=== PATIENT | female | born 1965 | race Caucasian/White ===

== ENCOUNTER 2016-06-21 12:52 | Outpatient (CLI) ==
[2015-09-20 16:28] VITALS: BMI 40.0
--- NOTE | 2016-06-21 17:50 | MRI ---
EXAM: MRI cervical spine without IV contrast. DATE: 21 June 2016. HISTORY: Cervical radiculopathy. TECHNIQUE: Sagittal and axial T1W and T2W sequences of the cervical spine along with sagittal IR an d coronal T2W sequences were obtained using 1.2 Macy magnet. No IV contrast. COMPARISON: MRI C-spine 15 Sep 2014. FINDINGS: Mild rightward curvature the mid cervical spine is noted. A 1.1 mm anterior subluxation of C5 relative to C4 is observed. No other subluxation, acute fracture, osseous malignancy, or jump ed facet is apparent. Cervical vertebra are normal in height. Bone marrow signal is normal. Small anterior osteophytes and mild disc space narrowing are detected at C4-5. Cervical and upper thoraci c spinal cord reveals no syrinx, cord edema, myelomalacia, or neoplasm. Visible brainstem is unremarkable. Cerebellar tonsils extend near the inferior margin of the forame n magnum. There is no Chiari 1 malformation. No mastoid effusion or mastoiditis is demonstrated. Pituitary gland is somewhat small in size. No thyroid, submandibular, or parotid gland neoplasm is evident. Trachea, larynx, and epiglottis are normal. Small lymph nodes are seen in the anterior ce rvical chain bilaterally, but no definitive lymphadenopathy or mass. No apical lung mass, pneumonia , or pleural effusion is identified. Segmental analysis: C2-3: Normal. C3-4: Posterior midline broad disc protrusion (2 mm AP x 9.4 mm transverse) slightly flattens the c ord anteriorly. Canal is 7.5 mm AP. Minimal/mild bilateral foraminal stenoses are due to uncinate hypertrophy and mild facet arthropathy. C4-5: Minor anterior subluxation of C5 and broad posterior disc/osteophyte complex do not cause cor d compression; however, the cord is mildly flattened anteriorly. Canal is 9.8 mm AP. Marked right and mild/moderate left foraminal stenoses due to uncinate hypertrophy and mild facet disease. C5-6: Left paracentral disc/osteophyte complex (2.2 mm AP x 7 mm transverse) approaches the left an terolateral margin of the cord. There is mild ligamentum flavum hypertrophy. Canal is 8.2 mm AP. Mild left foraminal stenosis is due to uncinate hypertrophy and mild left facet arthropathy. C6-7: Broad posterior disc/osteophyte complex (2.6 mm AP) does not contact the cord. Canal is 7.8 mm AP. Minor left foraminal narrowing is due to uncinate hypertrophy. C7-T1: Minimal posterior disc bulge (1.4 mm AP) does not contact the cord. Canal is 10.3 mm AP. E ach foramen is patent. T1-2: Normal. IMPRESSIONS: 1. C-spine mild dextroscoliosis, minimal spondylosis, mild facet arthropathy, and multilevel DDD - - similar to August 2014. 2. Multilevel central canal stenosis (C3-4: Moderate. C4-5: Mild. C5-6: Mild. C6-7: Moderate). 3. Mild cord flattening at C3-4 and C4-5. No syrinx or myelomalacia. 4. Multilevel foraminal stenosis, especially right C4-5. 5. Small pituitary gland.
--- NOTE | 2016-06-21 18:04 | MRI ---
EXAM: MRI lumbar spine without IV contrast. DATE: 21 June 2016. HISTORY: Lumbar radiculopathy. Low back pain. TECHNIQUE: Sagittal and axial T1W and T2W sequences of the lumbar spine along with sagittal IR and coronal T2W sequences were obtained using 1.2 Macy magnet. No IV contrast. COMPARISON: LS spine series 29 September 2013. MRI L-spine April 2015. The abdomen/pelvis 15 Sep 2014 FINDINGS: There are five [id number]-[id number] lumbar vertebra. Minimal leftward curvature of the lumbar spine is observed. A 2.2 mm anterior subluxation of L5 relative to L4 and 2.2 mm anterolisthesis o f S1 relative to L5 are noted. No other subluxation, acute fracture, osseous malignancy, or pars in terarticularis defect is identified. Lumbar vertebra are normal in height. Bone marrow signal is n ormal. Large Schmorl's node at the L3 superior plate is chronic. Tiny anterior osteophytes and mil d disc space narrowing are present at L5-S1. No sacral fracture or stress reaction is apparent. SI joints are unremarkable. Conus medullaris terminates at T12-L1. Visible spinal cord is normal. No retroperitoneal lymphadenopathy, paraspinal mass, or aortic aneurysm is identified. Paraspinal m usculature is symmetric bilaterally. Visible portions of the liver, spleen, adrenal glands, and rig ht kidney are normal. Partially visualized benign appearing 15 mm cyst is present in the lateral co rtex lower pole left kidney. CBD is 9.6 mm diameter, without visible stones or mass. Segmental analysis: T11-12: Tiny posterior disc bulge does not cause cord compression or central stenosis. Facet arthr opathy causes mild left foraminal narrowing. T12-L1: Normal. L1-2: Normal L2-3: Minimal posterior to foraminal disc bulge and minor facet disease cause mild central canal st enosis, minor right foraminal narrowing, and mild left foraminal stenosis. Left L2 nerve root appea rs to contact the disc bulge best lateral to the foramen. L3-4: Small concentric disc bulge and mild facet arthropathy cause mild central canal stenosis and mild left foraminal stenosis. Left L3 nerve root contacts the disc bulge just lateral to the forame n. L4-5: Minimal anterior subluxation of L4, small concentric disc bulge, mild facet arthropathy, and mild ligamentum flavum hypertrophy cause mild/moderate central canal stenosis and moderate to marked narrowing at the opening to each foramen. Right L4 nerve root appears to contact the facet disease as the nerve enters the foramen. Left L4 nerve root touches disc bulge near the lateral margin of the foramen. L5-S1: Minor anterior subluxation of L5, small concentric disc bulge, and mild facet arthropathy ca use mild narrowing of the thecal sac and marked bilateral foraminal stenoses. Each L5 nerve root co ntacts the disc bulge/facet disease near the foramen. IMPRESSIONS: 1. Lumbar spine minor leftward curvature, minor spondylosis, mild facet arthropathy, and multilevel DDD - - similar to April 2015. 2. Multilevel central canal stenosis (L2-3: Mild. L3-4: Mild. L4-5: Mild/moderate. L5-S1: Mild). 3. Multilevel foraminal stenoses. Left L2, left L3, both L4, and both L5 nerve roots contact disc bulges/facet disease in the foramen, and could be sources for pain/radiculopathy. 4. Chronic, large Schmorl's node at L3. 5. Left kidney probable benign cortical cyst. 6. CBD equals 9.6 mm, without distinct stone or mass. This may be normal in a post cholecystectomy patient.
== END 2016-06-21 12:53 | disposition home or self-care (01) ==
LOC: RAD 12:52
PROVIDERS: ATTEND Emergency Medicine
DX: M54.12 Radiculopathy, cervical region (principal); M54.16 Radiculopathy, lumbar region

== ENCOUNTER 2016-07-25 00:28 | Emergency (ER) ==
[2016-07-25 00:39] VITALS: BP 135/82; TEMP 97.3; BMI 38.9
--- NOTE | 2016-07-25 01:28 | ED.PDOC ---
General ED Provider: Dr. RYAN MARKS Chief Complaint: GI Bleed Stated Complaint: bloos in toilet and tissue papers. has h/o hemorrhoids. Time Seen by Physician: 01:26 Mode of Arrival: Walk-In Information Source: Patient Primary Care Provider: IRINA CHAUDHARI Nursing and Triage Documentation Reviewed and Agree: Yes GI Complaint Exam - GI Bleed Complaint/Exam Patient Complains of: Reports: Rectal bleeding Symptoms Are: Resolved Severity: Reports: Blood-streaked stool, Bright red blood-rectum. Denies: Black tarry stool, Coffee ground emesis, Hematemesis Location of Pain: Reports: None Aggravating: Reports: Bowel movement Alleviating: Reports: None Associated Signs and Symptoms: Denies: Back Pain, Pallor, Dizziness, Weakness, Syncope, Constipation, Nausea, Rectal pain, Bruising, Weight loss, Recent abnormal coags Related History: Reports: Similar episode GI Bleed Risk Factors: Reports: None Recent Colonoscopy: No Recent EGD: No Abdominal Findings: Absent: Pulsatile mass, Unequal femoral pulses, Peritoneal signs, CVA Tenderness Differential Diagnoses: Diverticulitis, Hemorrhoids, Other Review of Systems - Review Of Systems Constitutional: Reports: No symptoms Eyes: Reports: No symptoms Ears, Nose, Mouth, Throat: Reports: No symptoms Respiratory: Reports: No symptoms Cardiac: Reports: No symptoms GI: Reports: Rectal bleeding : Reports: Hematuria Musculoskeletal: Reports: No symptoms Skin: Reports: No symptoms Neurological: Reports: No symptoms Endocrine: Reports: No symptoms Hematologic/Lymphatic: Reports: No symptoms All Other Systems: Reviewed and Negative Past Medical History - Past Medical History Previously Healthy: No Endocrine: Reports: Hypothyroid, Dyslipidemia Cardiovascular: Reports: None Respiratory: Reports: None Hematological: Reports: None Gastrointestinal: Reports: None Genitourinary: Reports: None Neuro/Psych: Reports: Migraine, Anxiety, Depression, Bipolar Disorder Musculoskeletal: Reports: None Cancer: Reports: None Last Menstrual Period: PT HAS HAD A HYSTERECTOMY Other Pertinent Past Medical History: arth--TACHYCARDIA - Surgical History General Surgical History: Reports: Hysterectomy, Appendectomy, Cholecystectomy, Orthopedic ( FOOT SURGERY, ELBOW), Other ( COLONOSCOPY, ) - Family History Family History: Reports: Unknown - Social History Smoking Status: Former smoker Hx Substance Use: No (PT GOES TO PAIN MANAGEMENT) Alcohol Screening: None - Immunizations Tetanus Shot up to Date: Yes Physical Exam - Physical Exam Appearance: Well-appearing, No pain distress, Well-nourished Eyes: LU, EOMI, Conjunctiva clear ENT: Ears normal, Nose normal, Oropharynx normal Respiratory: Airway patent, Breath sounds clear, Breath sounds equal, Respirations nonlabored Cardiovascular: RRR, Pulses normal, No rub, No murmur GI/: Soft, Nontender, No masses, Bowel sounds normal, No Organomegaly Musculoskeletal: Normal strength, ROM intact, No edema, No calf tenderness Skin: Warm, Dry, Normal color Neurological: Sensation intact, Motor intact, Reflexes intact, Cranial nerves intact, Alert, Oriented Psychiatric: Affect appropriate, Mood appropriate Critical Care Note - Critical Care Note Total Time (mins): 0 Course - Course Orders, Labs, Meds: Orders Category Date Time Status CBC W/ AUTO DIFF Stat LAB 07/25/16 01:25 Ordered COMPREHENSIVE METABOLIC PANEL Stat LAB 07/25/16 01:25 Ordered URINALYSIS C & S IF INDICATED Stat LAB 07/25/16 01:[address] ABDOMEN/PELVIS WO CONTRAST Stat RADS 07/25/16 01:25 Ordered Vital Signs: Temp Pulse Resp BP Pulse Ox 07/25/16 00:29 97.3 F L 92 H 20 135/82 96 Departure - Departure Time of Disposition: 02:40 Disposition: HOME SELF-CARE Discharge Problem: Hemorrhoid Qualifiers: Hemorrhoid type: unspecified Qualifier Code: (K64.9) Unspecified hemorrhoids Instructions: Rectal Bleeding (ED) Condition: Stable Pt referred to PMD for follow-up: Yes Additional Instructions: INCREASE HYDRATION TAKE STOOL SOFTNERS. HIGH FIBRE DIET. Allergies/Adverse Reactions: Allergies codeine phosphate [From Tylenol-Codeine #3] Adverse Reaction (Verified 07/25/16 00:39) oxycodone HCl [From Tylox] Adverse Reaction (Verified 07/25/16 00:39) Home Medications: Ambulatory Orders Quetiapine Fumarate [Seroquel] 600 mg PO BEDTIME 01/19/13 Sertraline HCl [Zoloft] 100 mg PO BEDTIME 01/19/13 Levothyroxine Sodium [Synthroid] 25 mcg PO BEDTIME 09/04/13 Propranolol HCl [Inderal] 40 mg PO BID 09/04/13 Atorvastatin Calcium [Lipitor] 20 mg PO BEDTIME 11/24/14 Pantoprazole Sodium [Protonix] 40 mg PO BEDTIME 11/24/14 Benztropine Mesylate 2 mg PO BEDTIME #30 03/08/16 Clonazepam [Klonopin] 0.5 mg PO QID PRN #120 03/08/16 Divalproex Sodium [Depakote Er] 500 mg PO BEDTIME #30 03/08/16 Hydrocodone/Acetaminophen [Gilbert 7.5-325 Tablet] 1 each PO TID PRN 07/25/16 Meloxicam [Mobic] 7.5 mg PO BID 07/25/16 Naproxen 250 mg PO TID PRN 07/25/16 Disposition Discussed With: Patient, Family
[2016-07-25 01:39] LABS: BASOPHILS % (AUTO) 0.4 % (0.0-3.0); EOSINOPHILS # (AUTO) 0.1 K/ul (0.0-0.7); EOSINOPHILS % (AUTO) 0.9 % (0.0-7.0); HEMOGLOBIN 14.1 g/dl (12.0-16.0); IMMATURE GRANULOCYTE % (AUTO) 0.4 % (0.0-5.0); LYMPHOCYTES # (AUTO) 3.5 K/uL (0.60-3.4); LYMPHOCYTES % (AUTO) 44.2 (10.0-50.0); MEAN CORPUSCULAR HEMOGLOBIN 28.5 pg (27.0-31.0); MEAN CORPUSCULAR HGB CONC 32.8 (31.8-35.4); MEAN CORPUSCULAR VOLUME 86.9 fl (81.0-99.0); MONOCYTES # (AUTO) 0.8 K/uL (0.4-2.0); MONOCYTES % (AUTO) 10.5 (0-10); NEUTROPHILS # (AUTO) 3.4 K/ul (2.0-6.9); NEUTROPHILS % (AUTO) 43.6; PLATELET COUNT 238 10^3/uL (140-440); RED BLOOD COUNT 4.95 10^6/ul (4.20-5.40); WHITE BLOOD COUNT 7.89 K/ul (4.6-10.2)
[2016-07-25 01:40] LABS: BILIRUBIN,URINE Negative (NEGATIVE); KETONES,URINE Negative (NEGATIVE); LEUKOCYTE ESTERASE ,URINE Trace (NEGATIVE); NITRITE,URINE Negative (NEGATIVE); PROTEIN,URINE Negative (NEGATIVE); URINE, BLOOD Trace-intact (NEGATIVE)
[2016-07-25 01:48] LABS: ADD URINE MICROSCOPIC YES
[2016-07-25 01:57] LABS: ALBUMIN 4.1 g/dL (3.4-5.0); ALBUMIN/GLOBULIN RATIO 1.32; ANION GAP 12.9; BILIRUBIN,TOTAL 0.26 mg/dL (0.00-1.20); CALCIUM 9.9 mg/dL (8.2-10.2); CREATININE 0.95 mg/dL (0.60-1.30); POTASSIUM 3.9 mmol/L (3.5-5.10); TOTAL PROTEIN 7.2 g/dL (6.4-8.2)
[2016-07-25 02:01] LABS: PROTHROMBIN TIME 9.9 SEC (9.3-11.0)
--- NOTE | 2016-07-25 02:18 | CT ---
EXAM: CT abdomen pelvis without intravenous contrast 07/25/2016. Sagittal and coronal reformatted images obtained HISTORY: Rectal bleeding COMPARISON: 09/15/2014 FINDINGS: Diffuse hepatic steatosis. The gallbladder has been removed. The adrenal glands and kidneys show no acute abnormality. No urinary obstruction. The spleen and p ancreas show no acute process. There is no bowel obstruction. Appendix not identified. No secondary signs of appendicitis Unremarkable decompressed urinary bladder. No free air or free fluid. IMPRESSION: 1. No acute inflammatory process identified within the abdomen or pelvis within the limitation of a noncontrast enhanced examination.
== END 2016-07-25 02:22 | disposition home or self-care (01) ==
LOC: ED 00:28
DX: K64.9 Unspecified hemorrhoids (principal); K92.1 Melena; Z79.899 Other long term (current) drug therapy
CPT/HCPCS: 36415; 80053; 81001; 85025; 85610; 99283

== ENCOUNTER 2016-11-23 14:49 | Outpatient (CLI) | payer OTHER ==
[2016-11-23 15:52] LABS: BASOPHILS % (AUTO) 0.3 % (0.0-3.0); EOSINOPHILS # (AUTO) 0.1 K/ul (0.0-0.7); HEMOGLOBIN 13.7 g/dl (12.0-16.0); MEAN CORPUSCULAR HGB CONC 32.2 (31.8-35.4); MEAN CORPUSCULAR VOLUME 88.4 fl (81.0-99.0); NEUTROPHILS # (AUTO) 3.7 K/ul (2.0-6.9)
[2016-11-23 16:40] LABS: ALBUMIN/GLOBULIN RATIO 1.25; ANION GAP 15.2; BILIRUBIN,TOTAL 0.31 mg/dL (0.00-1.20); BUN/CREATININE RATIO 14.28; CHOL/HDL RATIO 3.3 (4.5-5.5); CREATININE 0.84 mg/dL (0.60-1.30); POTASSIUM 4.2 mmol/L (3.5-5.10); TOTAL PROTEIN 7.2 g/dL (6.4-8.2)
[2016-11-23 17:25] LABS: EOSINOPHILS % (AUTO) 1.2 % (0.0-7.0); HEMATOCRIT 42.6 % (37.0-47.0); IMMATURE GRANULOCYTE % (AUTO) 0.6 % (0.0-5.0); LYMPHOCYTES # (AUTO) 2.3 K/uL (0.60-3.4); LYMPHOCYTES % (AUTO) 33.7 (10.0-50.0); MEAN CORPUSCULAR HEMOGLOBIN 28.4 pg (27.0-31.0); MONOCYTES # (AUTO) 0.6 K/uL (0.4-2.0); MONOCYTES % (AUTO) 9.4 (0-10); NEUTROPHILS % (AUTO) 54.8; PLATELET COUNT 243 10^3/uL (140-440); RED BLOOD COUNT 4.82 10^6/ul (4.20-5.40); WHITE BLOOD COUNT 6.73 K/ul (4.6-10.2)
== END 2016-11-23 14:50 | disposition home or self-care (01) ==
LOC: LAB 14:49
PROVIDERS: ATTEND Emergency Medicine
DX: E11.9 Type 2 diabetes mellitus without complications (principal); E78.5 Hyperlipidemia, unspecified
CPT/HCPCS: 36415; 80053; 80061; 83036; 84443; 85025

== ENCOUNTER 2017-03-28 09:37 | Outpatient (CLI) ==
[2017-03-28 10:36] LABS: BASOPHILS % (AUTO) 0.5 % (0.0-3.0); EOSINOPHILS % (AUTO) 0.6 % (0.0-7.0); HEMATOCRIT 39.3 % (37.0-47.0); HEMOGLOBIN 12.9 g/dl (12.0-16.0); IMMATURE GRANULOCYTE % (AUTO) 0.6 % (0.0-5.0); LYMPHOCYTES # (AUTO) 2.3 K/uL (0.60-3.4); LYMPHOCYTES % (AUTO) 34.6 (10.0-50.0); MEAN CORPUSCULAR HEMOGLOBIN 28.7 pg (27.0-31.0); MEAN CORPUSCULAR HGB CONC 32.8 (31.8-35.4); MEAN CORPUSCULAR VOLUME 87.5 fl (81.0-99.0); MONOCYTES # (AUTO) 0.6 K/uL (0.4-2.0); MONOCYTES % (AUTO) 9.5 (0-10); NEUTROPHILS # (AUTO) 3.6 K/ul (2.0-6.9); NEUTROPHILS % (AUTO) 54.2; PLATELET COUNT 215 10^3/uL (140-440); RED BLOOD COUNT 4.49 10^6/ul (4.20-5.40); WHITE BLOOD COUNT 6.64 K/ul (4.6-10.2)
--- NOTE | 2017-03-28 10:38 | CT ---
EXAM: CT of the lumbar spine without contrast History: Lower back pain and radiculopathy. Comparison: Lumbar spine MRI 06/21/2016 Technique: Multiplanar CT images through the lumbar spine were obtained without the administration o f IV contrast Findings: The liver is probably fatty. Atherosclerotic vascular calcifications. No acute fracture or subluxation of the lumbar spine. Moderate to severe degenerative disc disease a t L5-S1 with endplate sclerosis and osteophyte formation. Prominent Schmorl's node again seen involv ing the superior endplate of L3. T12-L1: No significant disc bulge, central canal stenosis or neural foraminal narrowing. L1-L2: No significant disc bulge, central canal stenosis or neural foraminal narrowing. L2-L3: No significant disc bulge or central canal stenosis. Mild bilateral bony neural foraminal na rrowing secondary to ligamentous and facet hypertrophy. L3-L4: Small disc bulge effacing the anterior thecal sac with no significant central canal stenosis. Mild bilateral bony neural foraminal narrowing secondary to ligamentous and facet hypertrophy. L4-L5: Small disc bulge effacing the anterior thecal sac with no significant central canal stenosis. Moderate bilateral bony neural foraminal narrowing secondary to ligamentous and facet hypertrophy. L5-S1: No significant disc bulge or central canal stenosis. Moderate to severe bilateral bony neura l foraminal narrowing secondary to ligamentous and facet hypertrophy. Impression: 1. No acute osseous abnormality of the lumbar spine. 2. Moderate to severe degenerative disc disease at L5-S1. 3. Level by level analysis as detailed above. 4. Hepatic steatosis
[2017-03-28 11:13] LABS: ALBUMIN 3.6 g/dL (3.4-5.0); ALBUMIN/GLOBULIN RATIO 1.13; ANION GAP 13.8; BILIRUBIN,TOTAL 0.31 mg/dL (0.00-1.20); BUN/CREATININE RATIO 22.72; CALCIUM 9.7 mg/dL (8.2-10.2); CHOL/HDL RATIO 3.5 (4.5-5.5); CREATININE 0.88 mg/dL (0.60-1.30); POTASSIUM 3.8 mmol/L (3.5-5.10); TOTAL PROTEIN 6.8 g/dL (6.4-8.2)
== END 2017-03-28 09:38 | disposition home or self-care (01) ==
LOC: RAD 09:37
PROVIDERS: ATTEND Physician Assistant Surgical
DX: E11.9 Type 2 diabetes mellitus without complications (principal); E78.5 Hyperlipidemia, unspecified; I10 Essential (primary) hypertension; M54.16 Radiculopathy, lumbar region; Z98.1 Arthrodesis status
CPT/HCPCS: 36415; 80053; 80061; 83036; 84443; 85025

== ENCOUNTER 2017-06-27 16:18 | Inpatient (IN) | payer OTHER ==
[2017-06-27] MEDS ORDERED: GI COCKTAIL PO STA (16:51)
[2017-06-27 17:07] VITALS: BMI 38.7
--- NOTE | 2017-06-27 18:00 | CT ---
EXAM: CT head without contrast 06/27/2017. Sagittal and coronal reformatted images obtained HISTORY: Syncope COMPARISON: None. FINDINGS: There is no evidence of intracranial hemorrhage. The midline is maintained. There is no h ydrocephalus. No cerebellar tonsillar ectopia. Evaluation of the calvarium shows no fracture. Th e mastoid air cells are normally pneumatized. IMPRESSION: No acute intracranial abnormality.
--- NOTE | 2017-06-27 18:06 | CT ---
EXAM: CT abdomen and pelvis without contrast HISTORY: Epigastric pain TECHNIQUE: Multi-slice transaxial helical with coronal and sagittal reformed images COMPARISON: CT abdomen/pelvis from 07/25/2016 FINDINGS: The lung bases are free of acute airspace or interstitial opacities. The heart size is nor mal. There are no pericardial or pleural effusions. The hepatic attenuation is diffusely low relative to the spleen. The gallbladder is absent without b iliary dilatation. The pancreas and adrenal glands are normal. The spleen has normal size and atten uation. A simple cyst is suggested at the interpolar region of the left kidney. No nephrolithiasis, ureterolithiasis, or ureteral pelvicaliectasis are appreciated. The nonopacified bladder is normal. The uterus is absent and there are no adnexal masses. The intestines have normal caliber without evidence of obstruction or acute inflammation. The append ix is not visualized and may be surgically absent. There are no secondary features of acute appendic itis. The abdominal aorta is atherosclerotic with normal caliber. No lymphadenopathy or ascites are appreciated. The bones are free of suspicious osteolytic or osteoblastic lesions. IMPRESSION: 1. No CT explanation for the patient's epigastric pain. 2. Diffuse hepatic steatosis. 3. Previous cholecystectomy without biliary dilatation. 4. Simple cyst, interpolar region of the left kidney.
[2017-06-27] MEDS: PROTONIX IV IVP SCH (18:17)
[2017-06-27] MEDS: CARAFATE PO SCH ×3 (18:20→20:38)
[2017-06-27] MEDS: GLUCOPHAGE PO SCH (18:23)
[2017-06-27] MEDS: SODIUM CHLORIDE 1,000 ML IV SCH (18:32)
[2017-06-27] MEDS ORDERED: NORCO 7.5-325 ONE (19:59)
[2017-06-27] MEDS: INDERAL PO SCH (20:34)
[2017-06-27] MEDS: BENTYL PO SCH (20:34)
[2017-06-27] MEDS: LIPITOR PO SCH (20:34)
[2017-06-27] MEDS: FLEXERIL PO SCH (20:34)
[2017-06-27] MEDS: KLONOPIN PO PRN (20:35)
[2017-06-27] MEDS: DEPAKOTE PO SCH (20:35)
[2017-06-27] MEDS: COGENTIN PO SCH (20:35)
[2017-06-27] MEDS: ZOLOFT PO SCH (20:35)
[2017-06-27] MEDS: SYNTHROID PO SCH (20:35)
[2017-06-27] MEDS: PERCOCET 7.5-325 PO SCH (20:36)
[2017-06-27] MEDS: SEROQUEL PO SCH (20:36)
[2017-06-27] MEDS ORDERED: NON-FORMULARY MEDICATION (Sertraline Hcl [Zoloft] 100 MG) PO SCH (21:00)
[2017-06-27] MEDS ORDERED: PROTONIX PO SCH (21:00)
[2017-06-27] MEDS ORDERED: BENZTROPINE MESYLATE 2 MG PO SCH (21:00)
[2017-06-27] MEDS ORDERED: DIVALPROEX SODIUM 500 MG PO SCH (21:00)
[2017-06-27] MEDS ORDERED: NON-FORMULARY MEDICATION (Quetiapine Fumarate [Seroquel] 600 MG) PO SCH (21:00)
[2017-06-27] MEDS ORDERED: NON-FORMULARY MEDICATION (Omeprazole [Omeprazole] 40 MG) PO SCH (21:00)
[2017-06-28] MEDS: CARAFATE PO SCH ×4 (05:35→20:35)
[2017-06-28] MEDS: SODIUM CHLORIDE 1,000 ML IV SCH ×2 (07:21→18:35)
[2017-06-28] MEDS ORDERED: SODIUM CHLORIDE 500 ML IV STA (08:55)
[2017-06-28] MEDS: PERCOCET 7.5-325 PO SCH ×2 (09:39→20:34)
[2017-06-28] MEDS: PROTONIX IV IVP SCH (09:39)
[2017-06-28] MEDS: INDERAL PO SCH ×2 (09:40→20:32)
[2017-06-28] MEDS: BENTYL PO SCH ×3 (09:40→20:32)
[2017-06-28] MEDS: TRIGLIDE PO SCH (09:40)
[2017-06-28] MEDS: GLUCOPHAGE PO SCH ×2 (09:41→16:56)
[2017-06-28] MEDS: FLEXERIL PO SCH ×2 (09:46→20:33)
[2017-06-28] MEDS: LIPITOR PO SCH (20:32)
[2017-06-28] MEDS: DEPAKOTE PO SCH (20:32)
[2017-06-28] MEDS: SYNTHROID PO SCH (20:33)
[2017-06-28] MEDS: ZOLOFT PO SCH (20:33)
[2017-06-28] MEDS: SEROQUEL PO SCH (20:33)
[2017-06-28] MEDS: COGENTIN PO SCH (20:33)
[2017-06-28] MEDS: KLONOPIN PO PRN (20:41)
[2017-06-28] MEDS ORDERED: ZOFRAN 4 MG/2 ML IVP PRN (23:17)
[2017-06-29] MEDS: CARAFATE PO SCH ×4 (06:14→21:45)
[2017-06-29] MEDS: SODIUM CHLORIDE 1,000 ML IV SCH ×3 (08:26→20:34)
[2017-06-29] MEDS: BENTYL PO SCH ×3 (08:27→21:44)
[2017-06-29] MEDS: GLUCOPHAGE PO SCH ×2 (08:27→17:19)
[2017-06-29] MEDS: FLEXERIL PO SCH ×2 (08:27→21:44)
[2017-06-29] MEDS: INDERAL PO SCH ×2 (08:27→21:43)
[2017-06-29] MEDS: PERCOCET 7.5-325 PO SCH ×2 (08:27→21:44)
[2017-06-29] MEDS: TRIGLIDE PO SCH (08:27)
[2017-06-29] MEDS: PROTONIX IV IVP SCH (08:29)
[2017-06-29] MEDS ORDERED: DECADRON 4 MG/ML SDV IVP STA (09:43)
--- NOTE | 2017-06-29 15:28 | CT ---
EXAM: Noncontrast CT of the chest HISTORY: Short of air COMPARISON: 11/24/2014 TECHNIQUE: Noncontrast CT of the chest FINDINGS: There is mild bilateral lower lobe atelectasis and/or scarring. There is a right lower lobe pleural- based nodular density on axial image 28 measuring 5 mm. There is minimal lingular atelectasis. No fo clive consolidation, pleural effusion or pneumothorax is seen. Heart size is normal. Mild atherosclerotic calcifications are present. No mediastinal lymphadenopathy is seen. There is minimal distension of the esophagus The liver is hypodense. The gallbladder has been removed. IMPRESSION: Mild bilateral lower lobe atelectasis and/or scarring. Otherwise no acute cardiopulmonary findings. 5 mm right lower lobe focal atelectasis/scarring versus less likely pulmonary nodule. If the patient is high risk, a follow-up CT in 12 months could be considered. Mild atherosclerosis. Fatty infiltration of the liver.
[2017-06-29] MEDS: KLONOPIN PO PRN (18:41)
[2017-06-29] MEDS: SYNTHROID PO SCH (21:43)
[2017-06-29] MEDS: LIPITOR PO SCH (21:43)
[2017-06-29] MEDS: DEPAKOTE PO SCH (21:44)
[2017-06-29] MEDS: COGENTIN PO SCH (21:44)
[2017-06-29] MEDS: ZOLOFT PO SCH (21:44)
[2017-06-29] MEDS: SEROQUEL PO SCH (21:44)
[2017-06-30] MEDS: CARAFATE PO SCH ×2 (05:56→11:06)
[2017-06-30] MEDS: INDERAL PO SCH ×2 (09:00→20:59)
[2017-06-30] MEDS: PROTONIX IV IVP SCH (09:00)
[2017-06-30] MEDS: TRIGLIDE PO SCH (09:01)
[2017-06-30] MEDS: PERCOCET 7.5-325 PO SCH ×2 (09:01→20:59)
[2017-06-30] MEDS: GLUCOPHAGE PO SCH ×2 (09:01→17:19)
[2017-06-30] MEDS: FLEXERIL PO SCH ×2 (09:02→20:59)
[2017-06-30] MEDS: BENTYL PO SCH ×3 (09:02→20:59)
[2017-06-30] MEDS ORDERED: CITRATE OF MAGNESIA PO STA (13:07)
[2017-06-30] MEDS: SODIUM CHLORIDE 1,000 ML IV SCH ×2 (13:32→14:35)
[2017-06-30] MEDS: COGENTIN PO SCH (20:58)
[2017-06-30] MEDS: ZOLOFT PO SCH (20:58)
[2017-06-30] MEDS: SYNTHROID PO SCH (20:59)
[2017-06-30] MEDS: LIPITOR PO SCH (20:59)
[2017-06-30] MEDS: DEPAKOTE PO SCH (21:01)
[2017-06-30] MEDS: SEROQUEL PO SCH (21:01)
[2017-07-01] MEDS: SODIUM CHLORIDE 1,000 ML IV SCH (03:15)
[2017-07-01] MEDS: FLEXERIL PO SCH (08:47)
[2017-07-01] MEDS: BENTYL PO SCH (08:47)
[2017-07-01] MEDS: INDERAL PO SCH (08:47)
[2017-07-01] MEDS: TRIGLIDE PO SCH (08:47)
[2017-07-01] MEDS: GLUCOPHAGE PO SCH (08:47)
[2017-07-01] MEDS: PERCOCET 7.5-325 PO SCH (08:48)
[2017-07-01] MEDS: PROTONIX IV IVP SCH (10:10)
[2017-07-01 10:43] VITALS: BP 119/80; TEMP 97.9
--- NOTE | 2017-07-03 13:17 | PN ---
DATE OF SERVICE: 06/28/17 SUBJECTIVE: The patient was admitted yesterday from the office with epigastric abdominal pain, severe, 10/10 with nausea, vomiting, hypotensive with blood pressure around 101-102 systolic. The patient's labs, amylase, lipase were normal. BUN, creatinine normal. CT of abdomen and pelvis did not show any problem. The patient was also having dizziness and syncope for which CT head was done which was negative. Probably all the patient's symptoms are just from the hypotension , which can be multifactorial from medication and dehydration. Still sitting in the bed, was able to eat food, still has tenderness, says medication GI cocktail and Zantac are helping. Otherwise, she still has some light-headedness when she walks. Lisinopril is on hold and Hydrochlorothiazide is on hold. REVIEW OF SYSTEMS: CONSTITUTIONAL: No fever, no chills. HEENT: Normal. ENDOCRINE: No weight gain, no weight loss. CVS: No angina symptoms. No CHF symptoms. No palpitations. No atypical chest pain for CAD. No shortness of breath. No PND, no orthopnea. RESPIRATORY: No cough, no hemoptysis. GI: Abdominal tenderness. No nausea, no vomiting. : No hematuria. No polyuria. MUSCULOSKELETAL: No joint swelling. PSYCHIATRIC: Not anxious. No depression. No suicidal thoughts. No homicidal thoughts. SKIN: Intact. No rash. PHYSICAL EXAMINATION: V/S: Blood pressure 90/54, respiratory rate 18, heart rate 92, temperature 97.9 , saturation 94. HEENT: Normocephalic, atraumatic. Mucosa dry. NECK: Supple. No JVD, no carotid bruit. No lymphadenopathy. LUNGS: Clear to auscultation. No rales or rhonchi. HEART: S1, S2 normal. No S3. No murmur, gallop or regurgitation. ABDOMEN: Soft, nontender. Bowel sounds active. No rigidity. No rebound or guarding. No CVA tenderness. EXTREMITIES: No pedal edema. No clubbing or cyanosis MUSCULOSKELETAL: No joint swelling. NEUROLOGIC: Awake, alert, oriented times three. No focal deficit. LYMPHATIC: No lymph nodes palpable. SKIN: Intact. LABS: Sodium 141, potassium 4.0, chloride 103, bicarb 27, BUN 16, creatinine 0.97, glucose 154. White count 4.76, hemoglobin 13.0, hematocrit 39.1, platelet count 221. ASSESSMENT: 1. NEAR SYNCOPAL EPISODE 2. DEHYDRATION 3. HYPOTENSION 4. ABDOMINAL PAIN MOST LIKELY PEPTIC ULCER DISEASE 5. HISTORY OF HYPERTENSION 6. BIPOLAR DISORDER 7. DEPRESSION PLAN: 1. Continue IV fluids 2. Out of bed to chair with help 3. Keep holding the blood pressure medications TIME SPENT: More than 35 minutes MTDD
--- NOTE | 2017-07-03 13:32 | PN ---
DATE OF SERVICE: 06/29/17 SUBJECTIVE: The patient was admitted with the hypotension, dizziness, near syncope and abdominal pain. Abdominal pain is better. The patient is getting good. CT of abdomen is negative. The patient did have some nausea yesterday and Zofran did help here. Today morning she is feeling better but the blood pressure is still systolic under 100. She is a little bit dizzy when she is walking. REVIEW OF SYSTEMS: CONSTITUTIONAL: No fever, no chills. HEENT: Normal. ENDOCRINE: No weight gain, no weight loss. CVS: No angina symptoms. No CHF symptoms. No palpitations. No atypical chest pain for CAD. No shortness of breath. No PND, no orthopnea. RESPIRATORY: No cough, no hemoptysis. GI: No nausea, no vomiting. No abdominal pain. : No hematuria. No polyuria. MUSCULOSKELETAL: No joint swelling. PSYCHIATRIC: Not anxious. No depression. No suicidal thoughts. No homicidal thoughts. SKIN: Intact. No rash. PHYSICAL EXAMINATION: V/S: Blood pressure 85/58, respiratory rate 12, heart rate 76, temperature 97.7 and saturation 97%. HEENT: Normocephalic, atraumatic. Mucosa dry. NECK: Supple. No JVD, no carotid bruit. No lymphadenopathy. LUNGS: Decreased and clear to auscultation. No rales or rhonchi. HEART: S1, S2 normal. No S3. No murmur, gallop or regurgitation. ABDOMEN: Soft, nontender. Bowel sounds active. No rigidity. No rebound or guarding. No CVA tenderness. EXTREMITIES: No pedal edema. No clubbing or cyanosis MUSCULOSKELETAL: No joint swelling. NEUROLOGIC: Awake, alert, oriented times three. No focal deficit. LYMPHATIC: No lymph nodes palpable. SKIN: Intact. LABS: Sodium 141, potassium 4.0, chloride is 103, Bicarb 27, BUN 16, creatinine 0.97, glucose 154, WBC 4.76, hgb 13.0, hct 39.1, plt count 221. ASSESSMENT: 1. Hypotension most likely polypharmacy 2. Abdominal pain from gastritis 3. GERD 4. Depression 5. Anxiety 6. Osteoarthritis 7. Bipolar disorder 8. Diabetes PLAN: 1. CT chest 2. Continue IV fluids 3. Zofran 4. Continue Metformin 5. Seroquel 6. IV fluids at 75ml per hour TIME SPENT: More than 35 minutes MAGDALENA
--- NOTE | 2017-07-03 13:40 | DS ---
DATE OF SERVICE: 07/01/17 FINAL DIAGNOSIS: 1. SYMPTOMATIC HYPOTENSION WITH DIZZINESS AND LIGHTHEADEDNESS 2. HYPOTENSION SECONDARY TO DEHYDRATION (ALL BP MEDICATIONS ARE ON HOLD - LISINOPRIL AND HYDROCHLOROTHIAZIDE) 3. DEHYDRATION 4. ANEMIA WITH POSITIVE OCCULT BLOOD TEST 5. DIABETES 6. HEPATIC STEATOSIS 7. HISTORY OF HYPERTENSION 8. CHOLECYSTECTOMY 9. DJD SPINE 10. HYPOTHYROIDISM 11. BIPOLAR DISORDER 12. DEPRESSION 13. HYPERTENSION 14. DYSLIPIDEMIA 15, OSTEOARTHRITIS 16. GERD 17. ESSENTIAL TREMORS 18. APPENDECTOMY 19. COMPLETE HYSTERECTOMY DISCHARGE INSTRUCTIONS: 1. Discharge the patient home 2. GI evaluation with Dr. Mckinley for positive occult blood test 3. Prilosec 20 mg twice a day 4. Antivert 20 mg twice a day as needed 5. Glucometer with Accu-checks once a day 6. Continue home medications MEDICATIONS AT DISCHARGE: Aspirin Lipitor Benzotropine Levothyroxine Synthroid Metformin Prevacid Propranolol Seroquel Sertraline HOLD LISINOPRIL AND HYDROCHLORATHIAZIDE NEW PRESCRIPTIONS: Meclizine 25 mg p.o. b.i.d. p.r.n. Prilosec 20 mg p.o. b.i.d. a.c. DIET INSTRUCTIONS: Cardiac and healthy diet ACTIVITY: As much as tolerated SMOKING: Former smoker DISEASE SPECIFIC EDUCATION: Anemia Colon cancer risks Dehydration Syncope Blood pressure medication and causing hypotension and advised to stop the medication at this time. HOSPITAL COURSE: This is a 52-year-old female, who is an office patient, came to the office complaining that had been feeling dizzy and had almost passed out the day before. This just started from nowhere, was worried and came to the office. At that time, with the given hypotension and being weak with pallor, the patient was admitted to the hospital thinking that the possible cause of the hypotension may be the dehydration. The patient's Lisinopril and Hydrochlorathiazide were held and started on IV fluids. CBC and CMP done. CT head was done which was negative. Initial hemoglobin was normal 13.0. BUN and creatinine were normal. Sugars were 154. Three sets of the cardiac enzymes were negative. CT abdomen and pelvis did not show any acute findings as the patient did have some diarrhea but after a couple of days, we asked the patient again and she was telling that she has been seeing a lot of black tarry stools. CT of the abdomen did show diffuse hepatic steatosis. Risks of liver cirrhosis was discussed with the patient and she verbalized understanding. CT chest was normal , did not show any problem with low blood pressure. 5 mm lower lobe focal atelectasis or scarring vs likely new pulmonary nodule. Followup in 12 months was suggested. Mild atherosclerosis was seen on CT chest. Throughout the hospital stay the blood pressure was never above 120, below 110 to 105 most of the time and the patient continues to have dizziness and light-headedness. Repeat hemoglobin was dropped to 10.7 from 13.0. Stool for occult blood test was positive. Anemia profile did not show any conclusion. At that time, as the patient is up and about walking with no signs of light-headedness today, patient planned for discharge. We strictly advised that she should get endoscopy and colonoscopy evaluation as outpatient and was scheduled with Dr. Mckinley, GI. TIME SPENT: MORE THAN 65 MINUTES MTDD
--- NOTE | 2017-07-03 14:01 | PN ---
DATE OF SERVICE: 06/30/17 - NOTE - DISCHARGE NOTE SUBJECTIVE: The patient came to the office complaining that she had been dizzy, lightheaded , felt almost like passing out. Blood pressure was low. Did have a couple days of some nausea, was not able to eat much, with no new medication changes. With the given history, the patient was high risk for stroke and was admitted to the hospital. Blood work was normal. CT head was negative for stroke. Chest x-ray negative. Blood pressure medication Hydrochlorthiazide and Lisinopril was on hold. IV fluids were started. EKG was normal sinus rhythm. Three sets of cardiac enzymes were negative. She did not have any problem while staying at the hospital, sugars have been good, urine negative. Valproic acid level was 37. Hemoglobin dropped from 13 to 10 probably from hemodilution. No black tarry stools. The patient was up and about walking. Blood pressure on a few occasions went up above 100 systolic. The patient has been getting IV fluids at 75 mL during the hospital stay. Her dizziness has improved alot. She was able to walk good in the corridor. There was not any pinpoint reason for the hypotension found. Because of the drop of hemoglobin from 13 to 10, I assumed it was from medication use. Hemoglobin did drop so we did anemia profile and occult blood test. The patient is more alert, awake and active than when she came. The patient will be discharged home today and we will follow at the [facility] within 5 to 7 days. DISEASE SPECIFIC EDUCATION: Low blood pressure Dizziness Lightheadedness Fall risk discussed The patient verbalized understanding ASSESSMENT: 1. HYPOTENSION MOST LIKELY FROM DEHYDRATION AND MEDICATION CHANGES 2. DIZZINESS, LIGHTHEADEDNESS FROM HYPOTENSION 3. HISTORY OF DIABETES 4. HYPERTENSION 5. DYSLIPIDEMIA 6. BIPOLAR DISORDER 7. HYPOTHYROIDISM 8. OSTEOARTHRITIS 9. DJD SPINE 10. GERD 11. ESSENTIAL TREMORS 12. CHOLECYSTECTOMY 13. APPENDECTOMY 14. COMPLETE HYSTERECTOMY PLAN: 1. Discharge the patient 2. Continue to hold, do not take any blood pressure medications which are: Lisinopril 20; Hydrochlorothiazide. 3. Continue the rest of the home medications which are Aspirin , Lipitor, Benzotropine, Levothyroxine, Synthroid, Metformin, Omeprazole, Propranolol, Seroquel, Zoloft 4. Diet - cardiac and diabetic diet - 1800 ADA diet 5. Activity as much as tolerated Per nursing notes Dr. Kahn was informed that the patient still had not had a bowel movement. Dr. Kahn stated okay and anticipated the patient would stay another night. TIME SPENT: More than 35 minutes MTDD
== END 2017-07-01 13:57 | disposition home or self-care (01) | DRG 315 ==
LOC: MEDSURG A 16:18
PROVIDERS: ADMIT Emergency Medicine; ATTEND Emergency Medicine
DX: I95.89 Other hypotension (principal); D62 Acute posthemorrhagic anemia; J98.11 Atelectasis; R10.13 Epigastric pain; R42 Dizziness and giddiness; E86.0 Dehydration; R11.2 Nausea with vomiting, unspecified; R19.5 Other fecal abnormalities; J98.4 Other disorders of lung; R91.1 Solitary pulmonary nodule; E11.9 Type 2 diabetes mellitus without complications; K76.0 Fatty (change of) liver, not elsewhere classified; I10 Essential (primary) hypertension; F31.9 Bipolar disorder, unspecified; F32.9 Major depressive disorder, single episode, unspecified; E03.9 Hypothyroidism, unspecified; M19.90 Unspecified osteoarthritis, unspecified site; M47.9 Spondylosis, unspecified; E78.5 Hyperlipidemia, unspecified; K21.9 Gastro-esophageal reflux disease without esophagitis; G25.0 Essential tremor; Z79.899 Other long term (current) drug therapy; Z79.84 Long term (current) use of oral hypoglycemic drugs; Z90.49 Acquired absence of other specified parts of digestive tract
CPT/HCPCS: 36415; 80053; 80164; 81001; 82150; 82272; 82550; 82607; 82728; 82746; 82962; 83540; 83550; 83690; 84466; 84484; 85014; 85018; 85025; 85045; 93005; 93010

== ENCOUNTER 2017-07-09 07:47 | Outpatient (CLI) | payer OTHER ==
--- NOTE | 2017-07-09 10:20 | MRI ---
EXAM: Brain MRI without contrast. HISTORY: Dizziness and giddiness. COMPARISON: Head CT 06/27/2017. TECHNIQUE: Multiplanar, multisequence MR images were acquired of the brain without contrast. FINDINGS: The midline structures are central. The cerebellar tonsils extend 2 mm below the foramen m agnum which is within normal variation. Both tonsils have a normal rounded configuration. There is mild enlargement of the subarachnoid space anterior to both frontal lobes at the convexity and mild w idening of the anterior interhemispheric fissure. The lateral ventricle and both sylvian fissures ar e prominent. There is mild prominence and mild widening of some frontal and parietal sulci. These f indings are compatible with age related involutional changes. The brain parenchyma has no restricted diffusion to suggest acute hypoperfusion or infarction. There is a thin rim of periventricular FLAIR hyperintensity that is considered normal. There is a single 2 mm T2 / FLAIR hyperintensity in the anterior left external capsule which is nonspecific. There are no abnormal foci of dark gradient echo signal to indicate intracranial hemorrhage. The corpus callo sum is normal in size and configuration. The pituitary gland is small with a concave superior border most compatible with a partial empty sella. There are no intraorbital masses. Paranasal sinuses, middle ears and mastoids are clear. Flow voids are present in the major intracranial arteries and dural venous sinuses. IMPRESSION: 1. No intracranial mass, hemorrhage or acute cerebral infarct. 2. A age related involutional changes and a single 2 mm T2 hyperintensity is present in the anterior left external capsule which is nonspecific. 3. Partial empty sella.
== END 2017-07-09 07:48 | disposition home or self-care (01) ==
LOC: RAD 07:47
PROVIDERS: ATTEND Emergency Medicine
DX: R42 Dizziness and giddiness (principal)

== ENCOUNTER 2017-08-13 09:49 | Day surgery (SDC) ==
[2017-07-16 21:41] VITALS: BMI 38.7
[2017-08-13] MEDS ORDERED: LIDOCAINE 1% 20 ML MDV ID STA (10:23)
[2017-08-13 10:24] VITALS: TEMP 97.3
[2017-08-13] MEDS ORDERED: DIPRIVAN 20 ML VIAL IVP ONE (11:55)
[2017-08-13] MEDS ORDERED: VERSED ONE (11:55)
[2017-08-13 14:43] VITALS: BP 118/56
--- NOTE | 2017-08-14 13:11 | OP ---
INDICATIONS FOR PROCEDURE: 52-year-old female presents for screening exam. She was having some bright red blood per rectum but that has resolved she tells me. MEDICATIONS: SEE ANESTHESIA NOTES. PROCEDURE: COLONOSCOPY. REPORT: The risks, benefits, alternatives and limitations were discussed in detail with the patient. Informed consent was obtained. After adequate sedation was achieved, a digital rectal exam revealed good tone, no masses. The colonoscope was introduced into the rectum and advanced under direct visual guidance to the cecum. The cecum was identified by the appendiceal orifice and IC valve. I then slowly withdrew the scope in a circumferential manner examining the mucosa quite carefully. I looked on the proximal and distal side of folds and flexures as best as possible. I was able to retroflex the scope in the right colon as well as the left colon. The colonic mucosa is unremarkable its entire length. On retroflex view of the anal canal there were nonengorged hemorrhoidal veins. The prep was good. The withdrawal time was 10 minutes and 31 seconds. The patient tolerated the procedure well with stable vital signs and pulse oximetry throughout. IMPRESSION: 1. UNREMARKABLE COLONOSCOPY EXAM. 2. SHE DID HAVE NONENGORGED INTERNAL HEMORRHOIDAL VEINS BUT NOTHING SIGNIFICANT AT THIS TIME. RECOMMENDATIONS: 1. High fiber diet. 2. Office visit as needed. 3. The [place] [employer] recommends a screening colonoscopy examination again in 10 years, sooner if there are any signs or symptoms to indicate otherwise. CC: DR. SELINA NICHOLS
== END 2017-08-13 12:55 | disposition home or self-care (01) ==
LOC: SURG 09:49
PROVIDERS: ATTEND Internal Medicine Gastroenterology
DX: Z12.11 Encounter for screening for malignant neoplasm of colon (principal); K64.8 Other hemorrhoids; Z87.19 Personal history of other diseases of the digestive system
CPT/HCPCS: 00812; G0121

== ENCOUNTER 2017-09-19 15:33 | Outpatient (CLI) ==
[2017-07-16 21:41] VITALS: BMI 38.7
== END 2017-09-19 15:34 | disposition home or self-care (01) ==
LOC: RHC-LAB 15:33
PROVIDERS: ATTEND Emergency Medicine
DX: E78.5 Hyperlipidemia, unspecified (principal); E11.9 Type 2 diabetes mellitus without complications
CPT/HCPCS: 36415; 80053; 85025

== ENCOUNTER 2017-10-10 11:59 | Outpatient (CLI) | payer OTHER ==
[2017-07-16 21:41] VITALS: BMI 38.7
--- NOTE | 2017-10-11 09:25 | MAMMO ---
EXAM: Bilateral digital screening mammogram (2-D and 3-D) History: Screening Comparison: Bilateral mammogram 01/18/2015 Findings: MLO and CC views of bilateral breasts demonstrate scattered fibroglandular breast parenchym a. CAD was reviewed by the radiologist. Tomosynthesis was performed. Stable benign bilateral breas t calcifications. There are no dominant masses, no suspicious microcalcifications and no architectur al distortions. Impression: Benign stable mammogram. Recommend followup routine screening mammography in 1 year. BIRADS 2
== END 2017-10-10 12:00 | disposition home or self-care (01) ==
LOC: RAD 11:59
PROVIDERS: ATTEND Emergency Medicine
DX: Z12.31 Encounter for screening mammogram for malignant neoplasm of breast (principal)
CPT/HCPCS: 77067

== ENCOUNTER 2017-11-12 15:38 | Outpatient (CLI) ==
[2017-07-16 21:41] VITALS: BMI 38.7
== END 2017-11-12 15:39 | disposition home or self-care (01) ==
LOC: LAB 15:38
PROVIDERS: ATTEND Emergency Medicine
DX: E11.9 Type 2 diabetes mellitus without complications (principal); E78.5 Hyperlipidemia, unspecified; R82.90 Unspecified abnormal findings in urine
CPT/HCPCS: 36415; 80061; 81001; 82043; 83036; 84443

== ENCOUNTER 2017-12-18 16:16 | Outpatient (CLI) | payer OTHER ==
[2017-07-16 21:41] VITALS: BMI 38.7
--- NOTE | 2017-12-18 16:56 | DI ---
EXAM: Four views of the right knee. History: Right knee pain. Findings: No acute fracture or dislocation. No abnormal calcifications or radiopaque foreign bodies . Joint spaces are preserved. Impression: Unremarkable exam
== END 2017-12-18 16:17 | disposition home or self-care (01) ==
LOC: RAD 16:16
PROVIDERS: ATTEND Nurse Practitioner
DX: M17.11 Unilateral primary osteoarthritis, right knee (principal)

== ENCOUNTER 2018-01-13 13:16 | Observation (INO) ==
--- NOTE | 2018-01-13 13:49 | DI ---
EXAM: Chest one view HISTORY: Pain COMPARISON: CT 06/29/2017 TECHNIQUE: Single view of the chest was performed FINDINGS: The lungs are clear. Prominent left epicardial fat pad. There is no pleural effusion or pn eumothorax. The heart is normal in size. The mediastinal contour is normal. There are no acute abn ormalities of the bones. IMPRESSION: No acute cardiopulmonary process.
--- NOTE | 2018-01-13 14:49 | ED.PDOC ---
General ED Provider: Dr. TG GODOY Chief Complaint: Chest Pain Stated Complaint: CHEST PAIN Time Seen by Physician: 13:20 (SEEN WITH MICK RN) Mode of Arrival: Walk-In Information Source: Patient Exam Limitations: No limitations [facility] and Triage Documentation Reviewed and Agree: Yes Does patient meet sepsis criteria?: No If yes, has appropriate treatment been initiated?: No System Inflammatory Response Syndrome: Not Applicable Sepsis Protocol: For patient's 13 years and over: Temp is 96.8 and below OR 101 and greater Pulse >90 BPM Resp >20/minute Acutely Altered Mental Status Are patient's symptoms suggestive of a new infection, such as: -Pneumonia -Skin, Soft Tissue -Endocarditis -UTI -Bone, Joint Infection -Implantable Device -Acute Abdominal Infection -Wound Infection -Meningitis -Blood Stream Catheter Infection -Unknown Cardiovascular Complaint Exam - Chest Pain Complaint/Exam Onset: Sudden Duration: 15 MIN P.T.A Symptoms Are: Resolved Timing: Intermittent Length of Chest Pain Episodes: 10 MIN Initial Severity: Moderate Current Severity: Moderate Location: Reports: Midsternal Pain Radiates: Reports: None Character: Reports: Aching Aggravating: Reports: None Alleviating: Reports: None Associated Signs and Symptoms: Denies: Diaphoresis, Nausea, Vomiting, Fever, Palpitations, Cough, Hemoptysis, Back pain, Abdominal pain, Dizziness, Short of air, Calf pain, Calf swelling Related Surgical History: Reports: None History of Healthcare-Acquired Pneumonia: Reports: No AMI/ACS Risk Factors: Reports: Diabetes, Hypertension, Dyslipidemia TAD Risk Factors: Reports: Hypertension Pulmonary Embolism Risk Factors: Reports: None Prior Care for this Complaint: No Recent Stress Test: No Recent Echo/LV Function: No JVD Present: No Subcutaneous Emphysema Present: No Diminshed Breath Sounds: No Reproducible Chest Wall Pain: No Bilateral Pulses Present: Yes Unequal Pulses Noted: No If Risk Factors for AMI/ACS Consider: EKG, Cardiac Enzymes Differential Diagnoses: Stable Angina, GI Diseasae, Lower Resp. Infection Quality Indicators For Acute UT or Cardiac Chest Pain: EKG in 10min. Review of Systems - Review Of Systems Constitutional: Reports: No symptoms Eyes: Reports: No symptoms Ears, Nose, Mouth, Throat: Reports: No symptoms Respiratory: Reports: No symptoms Cardiac: Reports: Chest pain GI: Reports: No symptoms : Reports: No symptoms Musculoskeletal: Reports: No symptoms Skin: Reports: No symptoms Neurological: Reports: No symptoms Endocrine: Reports: No symptoms Hematologic/Lymphatic: Reports: No symptoms All Other Systems: Reviewed and Negative Past Medical History - Past Medical History Previously Healthy: No Endocrine: Reports: Hypothyroid, Dyslipidemia Cardiovascular: Reports: None Respiratory: Reports: None Hematological: Reports: None Gastrointestinal: Reports: None Genitourinary: Reports: None Neuro/Psych: Reports: Migraine, Anxiety, Depression, Bipolar Disorder Musculoskeletal: Reports: None Cancer: Reports: None Last Menstrual Period: hysterectomy Other Pertinent Past Medical History: arth--TACHYCARDIA - Surgical History General Surgical History: Reports: Hysterectomy, Appendectomy, Cholecystectomy, Orthopedic ( FOOT SURGERY, ELBOW), Other ( COLONOSCOPY, ) - Family History Family History: Reports: Unknown - Social History Smoking Status: Former smoker Hx Substance Use: No (PT GOES TO PAIN MANAGEMENT) Alcohol Screening: None Physical Exam - Physical Exam Appearance: Well-appearing, No pain distress, Well-nourished Eyes: LU, EOMI, Conjunctiva clear ENT: Ears normal, Nose normal, Oropharynx normal Respiratory: Airway patent, Breath sounds clear, Breath sounds equal, Respirations nonlabored Cardiovascular: RRR, Pulses normal, No rub, No murmur GI/: Soft, Nontender, No masses, Bowel sounds normal, No Organomegaly Musculoskeletal: Normal strength, ROM intact, No edema, No calf tenderness Skin: Warm, Dry, Normal color Neurological: Sensation intact, Motor intact, Reflexes intact, Cranial nerves intact, Alert, Oriented Psychiatric: Affect appropriate, Mood appropriate Re-Evaluation - Re-Evaluation Time of Re-Evaluation: 14:00 Status: Improved Vital Signs Stable: Yes Pain Level: 0 Appearance: NAD Lungs: Clear Skin: Warm and Dry Neuro: Alert and Oriented X3 CV: RRR - Re-Evaluation Time of Re-Evaluation: 14:53 (MICK PRESENT AT ALL TIMES ) Status: Improved Vital Signs Stable: Yes Pain Level: 0 Appearance: NAD Skin: Warm and Dry Neuro: Alert and Oriented X3 CV: RRR Physician Notification - Case Discussed Physician Notified: ARLETTE BRASHER Time of Notification: 14:52 Admit To: Observation Critical Care Note - Critical Care Note Total Time (mins): 0 Course - Course Hematology/Chemistry: 01/13/18 13:45 01/13/18 13:45 Orders, Labs, Meds: Lab Review 01/13/18 01/13/18 13:45 13:45 WBC 6.89 RBC 4.75 Hgb 13.4 Hct 41.3 MCV 86.9 MCH 28.2 MCHC 32.4 RDW Coeff of [place] 13.0 Plt Count 206 Immature Gran % (Auto) 0.3 Neut % (Auto) 57.9 Lymph % (Auto) 31.5 [place] % (Auto) 9.1 Eos % (Auto) 0.9 Baso % (Auto) 0.3 Immature Gran # (Auto) 0.0 Neut # (Auto) 4.0 Lymph # (Auto) 2.2 [place] # (Auto) 0.6 Eos # (Auto) 0.1 Baso # (Auto) 0.0 Sodium 138.9 Potassium 4.35 Chloride 98.7 Carbon Dioxide 33.7 H Anion Gap 10.85 BUN 13.4 Creatinine 0.94 Estimated GFR (MDRD) 62.00 BUN/Creatinine Ratio 14.25 Glucose 134.9 H Calcium 9.78 Total Bilirubin 0.21 AST 66.7 H ALT 63.0 H Alkaline Phosphatase 86.8 Total Creatine Kinase 74.8 Troponin I < 0.012 Total Protein 7.41 Albumin 4.18 Globulin 3.23 Albumin/Globulin Ratio 1.29 Orders Category Date Time Status EKG-(ED ONLY) Stat CARDIO 01/13/18 13:24 Completed CBC W/ AUTO DIFF Stat LAB 01/13/18 13:45 Completed COMPREHENSIVE METABOLIC PANEL Stat LAB 01/13/18 13:45 Completed CREATINE KINASE Stat LAB 01/13/18 13:45 Completed TROPONIN I Stat LAB 01/13/18 13:45 Completed CHEST, 1V AP ONLY Stat RADS 01/13/18 13:23 Completed Vital Signs: Temp Pulse Resp BP Pulse Ox 01/13/18 13:17 96.4 F L 101 H 20 133/90 92 L LACI Risk Score LACI Risk Score: Risk Score Odds of by 30D 0 0.1 (0.1-0.2) 1 0.3 (0.2-0.3) 2 0.4 (0.3-0.5) 3 0.7 (0.6-0.9) 4 1.2 (1.0-1.5) 5 2.2 (1.9-2.6) 6 3.0 (2.5-3.6) 7 4.8 (3.8-6.1) Departure - Departure Time of Disposition: 14:52 Disposition: PLACED OBSERVATION Discharge Problem: Chest pain Instructions: Angina (ED) Condition: Good Pt referred to PMD for follow-up: Yes IPMP verified?: No Allergies/Adverse Reactions: Allergies latex Adverse Reaction (Mild, Verified 08/13/17 10:26) Rash codeine phosphate [From Tylenol-Codeine #3] Adverse Reaction (Verified 08/13/17 10:25) oxycodone HCl [From Tylox] Adverse Reaction (Verified 08/13/17 10:25) Home Medications: Ambulatory Orders Quetiapine Fumarate [Seroquel] 600 mg PO BEDTIME 01/19/13 Sertraline HCl [Zoloft] 100 mg PO BEDTIME 01/19/13 Levothyroxine Sodium [Synthroid] 25 mcg PO BEDTIME 09/04/13 Aspirin [Adult Aspirin Regimen] 81 mg PO BEDTIME 06/27/17 Disposition Discussed With: Patient
[2018-01-13] MEDS ORDERED: GLUCOPHAGE PO PRN (14:55)
[2018-01-13] MEDS ORDERED: BENTYL PO SCH (15:00)
--- NOTE | 2018-01-13 15:11 | PCM ---
- Chief Complaint Chief Complaint: Chest Pain w/ Diaphoresis. - History of Present Illness History of Present Illness: 52 yr old WM former patient of Dr. Kahn. Patient is currently on disability. Around 12pm today the patient was playing on computer, POGO games on her computer, she developed substernal crushing painful chest pain that radiated behind the left breast/chest and into her back. She has prominent history of GERD, worse lately. She notes that she has had emesis in her sleep over the past few weeks, no visits w/ GI. She has this chest pain intermittently, may have it a few days and then she will have no symptoms and then will have them again for a few days. This comes and goes with time, not food related, not dietary. No aggravating factors, no ameliorating factors. She does avoid activity during the chest pain. She notes that she is disabled secondary to mental health concerns. She has no provider for this at present. She takes anti-acid medication regularly. She has had ulcer historically, discussed that this may be present again. The patient denies recent blood in stool, no GI changes, no changes, no freq/no hesitancy, no burning, no abdominal pain, no vagnial discharge, no vaginal bleeding. Appetite has been normal. She has no other complaints at present except currently w/ ACUNA bitemporal rated at 5/10, ACUNA regularly, but had neck surgery and cervicogenic ACUNA are better. She has had this since being here. No nitro given in ER, no ASA given in ER. EKG negative x2. Vitals normal except BP is up and down occasionally, worse with movement. Telemetry since arrival reviewed and negative. She is not having any chest pain at present. I would like to get a stress test on her to r/o ACS, check another 2 sets of Troponin. Personally reviewed EKG and normal axis, normal NM, normal QRS and no ST changes. No acute process, not an acute [place]. No stress test in last 2-3 years. History of cardiology 30-40 years ago. Non smoker. Single, w/ 2 living children. LMP 30 years ago, s/p hysterectomy. Reported substernal chest pain, radiating into back. She has no GB, no appendix , no uterus. She has had ?ulcer historically. Atypical chest pain. Diaphoretic at time of pain. Not eating at time of pain either. She and i reviewed history last A1C 11/12/17 6.2 and controlled. She is not on insulin, I do not plan to complete a CT. Kidney function is stable. We will continue metformin for now. She has normal EKG, normal QTC 427. Meds reviewed, reconciliation completed. History of VIt D remotely,not addressed during hospital stay. She is now pain free, presented to clinic around early pm w/ chest pain, they sent to ER. Pain is atypical, suspect GI source but admitted to obs for f/o ACS w/ risk factors of age, DM, Hyperlipidemia, psych, hypothyroid on levothyroxine. - Review of Systems Constitutional: weakness, sweats. No: fever, chills, fatigue, loss of appetite , other Eyes: No: blurred vision, double-vision, discharge, itching, pain, redness, photophobia, other Ears: No: pain, bleeding, drainage, ringing, hearing loss, other Nose: No: bleeding, congestion, discharge, other Throat: No: pain, swelling, voice change, other Mouth: No: bleeding, pain, swelling, other Respiratory: shortness of air (temporarily, resovled quickly. ). No: cough, wheeze, hemoptysis, pain with breathing, other Cardiovascular: chest pain, left arm pain, diaphoresis, orthopnea. No: PND, edema, palpitations, syncope, other Gastrointestinal: abdominal pain (epigastric. ). No: nausea, vomiting, diarrhea , melena, hematemesis, hematochezia, dysphagia, constipation, other Genitourinary: No: dysuria, hematuria, frequency, incontinence, flank pain, vaginal discharge, abnormal bleeding, pelvic pain, other Neurological: headache (now mild, normally chronic migraine/ACUNA. Historical cervicogenic. ). No: dizziness, seizure, numbness, weakness, speech difficulty , problems with walking, tremor, fainting, other Musculoskeletal: No: pain, swelling in joints, other Skin: No: rash, pruritus, lacerations, wounds, bruising, other Immunology: No: hives, itching, frequent infections, difficulty healing, other Hematology: No: easy bruising, easy bleeding, swollen glands, other Endocrine: No: weight changes, cold intolerance, heat intolerance, excessive thirst, excessive hunger, polyuria, other Psychiatric: depression, anxiety, sleeplessness, hopelessness. No: suicidal, hallucinations, other - Past Medical History Past Medical History: Depression, anxiety, PUD, Migraine ACUNA, OBESITY BMI 41, GERD, History of HTN (Meds stopped due to hypotension), Chest pain. Intermittent Dizziness. DM 2, Hyperlipidemia, Former Smoker. Hypovitaminosis D , hypothyroid on synthroid. - Past Surgical History Past Surgical History: Appendectomy, Cholecystectomy, Hysterecomty/oophorectomy , Eyelid surgery, cervical spine surgery, finger repair, elbow surgery on left , Bilateral ankle surgery. - Allergies Allergies/Adverse Reactions: Allergies Allergy/AdvReac Type Severity Reaction Status Date / Time latex AdvReac Mild Rash Verified 08/13/17 10:26 codeine phosphate AdvReac Verified 08/13/17 10:25 [From Tylenol-Codeine #3] oxycodone HCl [From Tylox] AdvReac Verified 08/13/17 10:25 - Medications Medications: Medications Generic Name Dose Route Start Last Admin Trade Name Freq PRN Reason Stop Dose Admin Acetaminophen/Butalbital/Caffeine 1 each 01/13/18 21:00 Fioricet PO BID [facility] Aspirin 81 mg 01/13/18 21:00 Aspirin Ec PO BEDTIME [facility] Atorvastatin Calcium 20 mg 01/13/18 21:00 Lipitor PO BEDTIME [facility] Dicyclomine HCl 10 mg 01/13/18 15:00 Bentyl PO TID [facility] Sodium Chloride 1,000 mls @ 75 mls/hr 01/13/18 15:00 Sodium Chloride IV .[id number] [facility] Levothyroxine Sodium 25 mcg 01/13/18 21:00 Synthroid PO BEDTIME YEN Metformin HCl 500 mg 01/13/18 14:55 Glucophage PO BID PRN Hyperglycemica Non-Formulary Medication 2 mg 01/13/18 21:00 Benztropine Mesylate [Benztropine Mesylate] PO BEDTIME YEN Non-Formulary Medication 40 mg 01/14/18 09:00 Propranolol Hcl [Propranolol Hcl] PO DAILY YEN Non-Formulary Medication 0.5 mg 01/14/18 09:00 Ropinirole Hcl [Requip] PO DAILY YEN Non-Formulary Medication 600 mg 01/13/18 21:00 Quetiapine Fumarate [Seroquel] PO BEDTIME YEN Pantoprazole Sodium 40 mg 01/14/18 09:00 Protonix PO DAILY YEN - Family History Past Family History: Mother , history unknown, not involved with patient. Father [place]. 5 Brother: #1 w/ Brain Aneursym . 2 Sister: #1 Cancer . 1 son: Healthy. 1 daughter: Healthy - Social History Past Social History: Former smoker, disabled mental health. Lives alone. Pets dog. Anabaptism none. - Vital Signs Temperature: 96.4 F Pulse Rate: 101 Respiratory Rate: 20 Blood Pressure: 133/90 O2 Sat by Pulse Oximetry: 92 - Body Composition Height: 5 ft 3 in Weight: 233 lb 0.458 oz Body Mass Index (BMI): 41.3 - Physical Examination HEENT: Constitutional: Appearance-No acute distress, Consistent with stated age. Orientation- Oriented x 3, alert Gait- Not evaluated, she was sitting on telemetry in hospital bed. Build and Nutrition-[Obese female BMI 41 prominent central adiposity] General- Patient is pleasant and cooperative with the interview and exam. Talkative. Integumentary: General-No rashes, ulcers or lesions. Palpation- Normal skin moisture/turgor. Skin is warm to touch, appropriate. Capillary refill is normal bilateral Upper and lower extremity. Tattoos numerous, mostly visible left ventral forearm butterflies. Head/Neck: Head- normocephalic and atraumatic. Neck- without visible/palpable lumps or pulsations. Palpation- No bony tenderness about head/neck along frontal, occipital, temporal, parietal, mastoid, jawline, zygoma, orbit or any other location. NO temporal artery tenderness. No TMJ tenderness. Neck Supple. Thyroid-No thyromegaly, no nodules Eye: Bilaterally PERRLA, EOMI. No discharge. Upper and lower eyelids are normal. Sclera/conjunctiva normal without discharge. Cornea is normal and clear. Lens is normal. Eyeball appears normal. No ciliary flushing, no conjunctival injection. +GLASSES ENMT: Pinna- normal without tenderness or erythema. External auditory canal Left- normal without erythema or discharge, no excessive cerumen. External auditory canal Right-normal without erythema or discharge, no excessive cerumen. TM left- Marshall/pearly, normal light reflex and anatomy TM Right- Marshall/ pearly, normal light reflex and anatomy Hearing Assessment-normal to conversational speech. Nose and sinus- No sinus tenderness along frontal/ maxillary region. External appearance normal and midline. Nares- bilateral quiet airflow, no discharge. Nasal mucosa- No bleeding noted and no ulcerations observed. Capac, moist. Turbinates non boggy. Lips- normal color, moist without cracks/lesions Oral Cavity/Palate- hard/soft palate intact without lesions, oral mucosa pink and moist. Dentition assessed poor. Upper dentures. Tongue normal midline. Oropharynx- no pharyngeal erythema, Uvula midline. No post nasal drip. No exudate. Salivary glands- Non tender to palpation CHEST/LUNG: Inspection- symmetric chest wall no pectus deformity. Normal effort , no distress, no use of accessory muscles. Palpation- nontender sternum, ribline. No abnormal pulsations. Auscultation- Breath sounds normal throughout all lung pat. Normal tracheal sounds, Normal bronchial sounds overlying sternum, Bronchovessicular sounds normal between scapulae posteriorly, Normal vessicular breath sounds heard throughout periphery. Lungs are clear today. Adventitious sounds- No wheezes, rales, rhonchi. CARDIOVASCULAR: Carotid artery- normal, no bruits or abnormal pulsations. Jugular vein- no pulsations. Palpation/Percussion- Normal PMI, no palpable thrill Auscultation- Regular rate and rhythm. No murmur noted in sitting, supine positions. Extremities- no digital clubbing, cyanosis, edema, increased warmth. NO reproducible chest wall pain. No abnormal heart rhythm/rate, no murmur. ABDOMEN: Inspection- normal and no visible pulsations. Normal contour. Auscultation- Bowel sounds normal, no abdominal bruits. Palpation/Percussion- soft, mildly tender epigastric. No wilson, no mcburney,, no rebound tenderness, no rigidity (guarding), no jar tenderness, no masses. Liver-no hepatomegaly, Spleen no splenomegaly, Hernias- none. Rectal not examined. CVA: NONE. Peripheral Vascular: Upper extremity Left- Normal temperature with pink nailbeds and no ulcerations. Upper extremity Right- Normal temperature with pink nailbeds and no ulcerations. Lower extremity- Normal temperature with pink nailbeds and no ulcerations. DP pulses 2+ bilaterally. Pedal hair intact. Normal capillary refill. Edema- No edema. Musculoskeletal: Generalized-No generalized swelling or edema of extremities, no digital clubbing or cyanosis, neurovascularly intact all four extremities. Upper extremity- Symmetrical posture. No visible deformity. Normal sensation along medial and lateral upper extremity proximally and distally. NO tenderness overlying shoulder, lateral/medial epicondyle. Entry Level Automotive Technician 5/5 and strength 5/5 bilateral UE. Elbow palpated, no tenderness overlying olecranon. Normal supination, pronation to active/passive ROM and to resisted rotation. Bicep insertion/tricep insertion appear normal without obvious pathology. Rotator cuff evaluated and intact. Normal wrist ROM bilaterally. Normal hand movement, intrinsic muscles of hands normal. No tenderness to palpation of hands/wrists/ elbows. Lower extremity- Hip: Not tender to palpation, no pain, no swelling, edema or erythema of surrounding tissue, normal strength and tone. Normal appearing hip ROM bilaterally without pain. Knee: Knee ROM normal. No tenderness overlying trochanters, no tenderness about patella, quad tendon, patellar tendon. No tenderness at tibial tuberosity. Ankle: normal ROM not tender to palpation along medial/lateral malleolus. Foot: Normal movement of toes, no tenderness bilateral feet/toes. Normal foot type. Spine/Ribs- No deformities, masses or tenderness, no known fractures, normal strength, Normal ROM. Normal stability No tenderness along C/T/L spine. Normal appearing ROM about spine. Neurological: General- Moves all 4 extremities symmetrically. Symmetrical face and body posture. Cranial nerves- individually evaluated II-XII and intact. PERRLA, Normal EOMI, visual/special senses appear intact, Face is symmetrical and normal sensation/movement, normal tongue, normal strength/posture of neck musculature. Reflexes- intact with DTR 2+ patellar, Achilles, bicep, brachial, tricep. Ankle clonus normal with 2 beats. Strength- 5/5 bilateral UE and LE. Soft touch- intact bilateral UE and LE. Temperature sensation- intact bilateral UE and LE. Neuropsych: Oriented- Person, place, time. (AAOx3), Mood/affect- normal and congruent. Able to articulate well. Speech-Normal speech, normal rate, normal tone, normal use of language, volume and coherence. Thought content- normal with ability to perform basic computations and apply abstract thought/reason. Associations- intact, no SI/HI, no hallucinations, delusions, obsessions. Judgment/insight- Appropriate. Memory-Recall intact, remote and recent memory intact. Knowledge- Age appropriate fund of knowledge, concentration and attention span normal. Lymphatic: Head/Neck- normal size and non tender to palpation. Axillary- normal size and non tender to palpation. Femoral and Inguinal- normal size and non tender to palpation. - Lab/Tests/Diagnostic Imaging Lab/Tests/Diagnostic Imaging: Abnormal Lab Results 01/13/18 01/13/18 13:45 13:45 WBC 6.89 RBC 4.75 Hgb 13.4 Hct 41.3 MCV 86.9 MCH 28.2 MCHC 32.4 RDW Coeff of [place] 13.0 Plt Count 206 Immature Gran % (Auto) 0.3 Neut % (Auto) 57.9 Lymph % (Auto) 31.5 [place] % (Auto) 9.1 Eos % (Auto) 0.9 Baso % (Auto) 0.3 Immature Gran # (Auto) 0.0 Neut # (Auto) 4.0 Lymph # (Auto) 2.2 [place] # (Auto) 0.6 Eos # (Auto) 0.1 Baso # (Auto) 0.0 Sodium 138.9 Potassium 4.35 Chloride 98.7 Carbon Dioxide 33.7 H Anion Gap 10.85 BUN 13.4 Creatinine 0.94 Estimated GFR (MDRD) 62.00 BUN/Creatinine Ratio 14.25 Glucose 134.9 H Calcium 9.78 Total Bilirubin 0.21 AST 66.7 H ALT 63.0 H Alkaline Phosphatase 86.8 Total Creatine Kinase 74.8 Troponin I < 0.012 Total Protein 7.41 Albumin 4.18 Globulin 3.23 Albumin/Globulin Ratio 1.29 Chest XR Negative Last A1C 6.2 11/12/17, none within 60 days of admit, we will repeat. EKG NSR, NL [place], no ST/T changes, normal QTC, normal NM, normal QRS. - Assessment (1) Atypical chest pain Status: Acute Code(s): R07.89 - OTHER CHEST PAIN SNOMED Code(s): 762895697 (2) Diabetes mellitus with hemoglobin A1c goal of 7.0%-8.0% Status: Acute Code(s): E11.9 - TYPE 2 DIABETES MELLITUS WITHOUT COMPLICATIONS SNOMED Code(s): 616467608, 925343857 (3) Essential (primary) hypertension Status: Acute Code(s): I10 - ESSENTIAL (PRIMARY) HYPERTENSION SNOMED Code(s) : 04247733 (4) Hypothyroidism Status: Acute Code(s): E03.9 - HYPOTHYROIDISM, UNSPECIFIED SNOMED Code(s): 75985369 (5) Mood disorder Status: Acute Code(s): F39 - UNSPECIFIED MOOD [AFFECTIVE] DISORDER SNOMED Code(s): 60379054 (6) History of peptic ulcer Status: Acute Code(s): Z87.11 - PERSONAL HISTORY OF PEPTIC ULCER DISEASE SNOMED Code(s): 878564484 - Plan Plan: Chest Pain: DDX for chest pain is vast. Her symptoms are essentially resolved. We discussed typical examination and history findings for chest pain and heart attack today. We discussed that multiple organ systems can be the cause for this complaint. We reviewed possible causes to include cardiac etiologies: ACS, pericarditis, pericardial effusion, respiratory issues to include bronchitis/asthma/COPD/bronchospasm, PE (No SOA, no PURVIS, LOW LIKELIHOOD OF PE/ DVT based on Wells score 0 (1.3%)), GI problems to include esophageal spasm/ achalasia, Hiatal hernia, GERD, PUD, Liver disease/pancreatic disease, renal disease. Will check labs as listed. We discussed risks and benefits to getting EKG today, we reviewed aspirin and nitroglycerin. She has not received ASA or Nitro, she has no pain now other than mild epigastric discomfort. History of PUD, history of GERD. I will add carafate, check for H. Pylori. Already on protonix, will continue this. She will get influenza vaccine at discharge, pneumonia vaccine status to be checked. Consider OP admin due to DM status. - Troponin X2 sets - CBC/CMP in AM, TSH in am. - Telemetry ON - Admit to obs status - ADA diet as listed - Dobutamine stress echo in am. - I+O Q shift. History of PUD/GERD: Continue PPI. Check for H. Pylori. No reported rectal bleeding. - H. Pylori stool when BM - Carafate QID w/ meals and bed - Protonix to continue DM: No A1C within last 60 days. - A1C - Accucheck QAC/HS monitor. - Continue metformin for now. Stop if we decide to order any advanced imaging. Hypothyroid: Unknown status, will check TSH and f/u with results. - Continue levothyroxine - TSH adjust levothyroxine dose as needed. - Free T4 to be checked if needed. Diet: ADA 1800 kcal/day DVT Prophy: Lovenox 40mg subcut daily. Up with assist. Monitoring: Telemetry Activity: Up with assist. Labs: - CBC/CMP in am - Troponin 2 more sets - A1C with next troponin - TSH with next troponin - H. Pylori stool Ag with next stool. BMI 41: Discussed the federal guidelines suggest a healthy goal BMI of 18.5- 24.9 for people 18-65 and 23-30 for people age 65 and older. Overweight is considered BMI 25-30, Obesity 30-40 and Morbid obesity is defined as >100 lb overweight or BMI >40. With a BMI above goal, it is recommended to utilize a diet/exercise program to get back into the appropriate range. Consider referral to [facility]. For BMI >40 consider referral to bariatrics. If not already monitoring intake. I would recommend at least to keep a food diary. Document everything that is consumed into a food diary. Studies have shown that patients can lose up to 2x the weight by keeping track of foods. Offered handout on weight loss techniques. Apps that may be of benefit include [employer], Lose it. Regular exercise encouraged. Start with walking 5-10 minutes at a pace that is difficult to carry a conversation. If chest pain/SOA stop and f/u in office. Vaccinations: Discussed risks/benefits to vaccination, reviewed components of the vaccine, discussed VIS, discussed informed consent, informed consent obtained. Patient was allowed to accept or refuse vaccine. Questions answered to satisfactory state of patient. We reviewed typical age appropriate and seasonally appropriate vaccinations. Reviewed immunization history. - Influenza at discharge - Pneumonia vaccine can be admin in hospital or Outpatient with PCP Dispo: Stress in am, if negative home. Follow overnight troponin. Will check A1C, TSH, CBC/CMP and stool H. Pylori.
[2018-01-13] MEDS: LOVENOX SUBCUT SCH (16:53)
[2018-01-13] MEDS: CARAFATE PO SCH (17:03)
[2018-01-13] MEDS: SODIUM CHLORIDE 1,000 ML IV SCH (17:04)
[2018-01-13 17:14] VITALS: BMI 41.3
[2018-01-13] MEDS ORDERED: NON-FORMULARY MEDICATION (Meclizine Hcl [Meclizine Hcl] 25 MG) PO PRN (18:23)
[2018-01-13] MEDS ORDERED: NON-FORMULARY MEDICATION (Quetiapine Fumarate [Seroquel] 600 MG) PO SCH (21:00)
[2018-01-13] MEDS ORDERED: ASPIRIN EC PO SCH (21:00)
[2018-01-13] MEDS ORDERED: DIVALPROEX SODIUM PO SCH (21:00)
[2018-01-13] MEDS ORDERED: NON-FORMULARY MEDICATION (Zofran Odt 4 MG) PO SCH (21:00)
[2018-01-13] MEDS ORDERED: FIORICET PO SCH (21:00)
[2018-01-13] MEDS ORDERED: LIPITOR PO SCH (21:00)
[2018-01-13] MEDS ORDERED: SYNTHROID PO SCH (21:00)
[2018-01-13] MEDS ORDERED: NON-FORMULARY MEDICATION (Sertraline Hcl [Zoloft] 100 MG) PO SCH (21:00)
[2018-01-13] MEDS ORDERED: BENZTROPINE MESYLATE 2 MG PO SCH (21:00)
[2018-01-14] MEDS: CARAFATE PO SCH ×2 (00:34→07:32)
[2018-01-14] MEDS: SODIUM CHLORIDE 1,000 ML IV SCH (05:24)
[2018-01-14] MEDS ORDERED: PROTONIX PO SCH (06:30)
[2018-01-14] MEDS ORDERED: NON-FORMULARY MEDICATION (Ropinirole Hcl [Requip] 0.5 MG) PO SCH (09:00)
[2018-01-14] MEDS ORDERED: NON-FORMULARY MEDICATION (Zofran Odt 4 MG) PO SCH (09:00)
[2018-01-14] MEDS ORDERED: NON-FORMULARY MEDICATION (Propranolol Hcl [Propranolol Hcl] 40 MG) PO SCH (09:00)
[2018-01-14] MEDS: LOVENOX SUBCUT SCH (09:37)
--- NOTE | 2018-01-14 09:42 | PCM.DC ---
Final Diagnosis: All Active Problems Atypical chest pain (Acute)/Epigastric pain (Acute) Diabetes mellitus with hemoglobin A1c goal of 7.0%-8.0% (Chronic) At goal Essential (primary) hypertension (Chronic) Stable History of peptic ulcer (Acute) Hypothyroidism (Chronic) Stable Mood disorder (Chronic) Stable BMI 40-44.9 (Chronic) (1) Atypical chest pain Status: Acute Code(s): R07.89 - OTHER CHEST PAIN SNOMED Code(s): 197940124 (2) Diabetes mellitus with hemoglobin A1c goal of 7.0%-8.0% Status: Chronic Code(s): E11.9 - TYPE 2 DIABETES MELLITUS WITHOUT COMPLICATIONS SNOMED Code(s): 719811124, 454802085 (3) Essential (primary) hypertension Status: Chronic Code(s): I10 - ESSENTIAL (PRIMARY) HYPERTENSION SNOMED Code( s): 78064186 (4) Hypothyroidism Status: Chronic Code(s): E03.9 - HYPOTHYROIDISM, UNSPECIFIED SNOMED Code(s) : 44410150 (5) Mood disorder Status: Chronic Code(s): F39 - UNSPECIFIED MOOD [AFFECTIVE] DISORDER SNOMED Code(s): 69528271 (6) History of peptic ulcer Status: Acute Code(s): Z87.11 - PERSONAL HISTORY OF PEPTIC ULCER DISEASE SNOMED Code(s): 143888471 Reason for Hospitalization: 1. Atypical Chest Pain 2. DM 2 3. Hypothyroidism 4. Obesity Prognosis at Discharge: Stable, non cardiac chest pain suspected. Condition at Discharge: Stable/Improved, chest pain reduced at discharge. Medications at Discharge: Ambulatory Orders Medication Instructions Recorded Quetiapine Fumarate [Seroquel] 600 mg PO BEDTIME 01/19/13 Sertraline HCl [Zoloft] 100 mg PO BEDTIME 01/19/13 Levothyroxine Sodium [Synthroid] 25 mcg PO BEDTIME 09/04/13 Aspirin [Adult Aspirin Regimen] 81 mg PO BEDTIME 06/27/17 Divalproex Sodium [Divalproex 1 tab PO BEDTIME 01/13/18 Sodium ER] Pantoprazole Sodium [Protonix] 40 mg PO QDAC #35 tablet.dr 01/14/18 Sucralfate [Carafate] 1 gm PO ACHS #40 tablet 01/14/18 Lab/Diagnostics: Laboratory Last Values WBC 6.96 K/ul (4.6-10.2) 01/14/18 05:00 RBC 4.15 10^6/ul (4.20-5.40) L 01/14/18 05:00 Hgb 11.7 g/dl (12.0-16.0) L 01/14/18 05:00 Hct 36.1 % (37.0-47.0) L 01/14/18 05:00 MCV 87.0 fl (81.0-99.0) 01/14/18 05:00 MCH 28.2 pg (27.0-31.0) 01/14/18 05:00 MCHC 32.4 (31.8-35.4) 01/14/18 05:00 RDW Coeff of [place] 13.0 % (11.6-14.8) 01/14/18 05:00 Plt Count 186 10^3/uL (140-440) 01/14/18 05:00 Immature Gran % (Auto) 0.6 % (0.0-5.0) 01/14/18 05:00 Neut % (Auto) 46.8 01/14/18 05:00 Lymph % (Auto) 40.5 (10.0-50.0) 01/14/18 05:00 [place] % (Auto) 10.8 (0-10) H 01/14/18 05:00 Eos % (Auto) 1.0 % (0.0-7.0) 01/14/18 05:00 Baso % (Auto) 0.3 % (0.0-3.0) 01/14/18 05:00 Immature Gran # (Auto) 0.0 (0.0-1.0) 01/14/18 05:00 Neut # (Auto) 3.3 K/ul (2.0-6.9) 01/14/18 05:00 Lymph # (Auto) 2.8 K/uL (0.60-3.4) 01/14/18 05:00 [place] # (Auto) 0.8 K/uL (0.4-2.0) 01/14/18 05:00 Eos # (Auto) 0.1 K/ul (0.0-0.7) 01/14/18 05:00 Baso # (Auto) 0.0 K/uL (0-0.2) 01/14/18 05:00 Sodium 137.3 mmol/L (137-145) 01/14/18 05:00 Potassium 3.99 mmol/L (3.5-5.1) 01/14/18 05:00 Chloride 101.9 mmol/L (98-107) 01/14/18 05:00 Carbon Dioxide 30.0 mmol/L (22-30) 01/14/18 05:00 Anion Gap 9.39 01/14/18 05:00 BUN 14.6 mg/dL (7-17) 01/14/18 05:00 Creatinine 0.82 mg/dL (0.60-1.30) 01/14/18 05:00 Estimated GFR (MDRD) 73.00 mL/min 01/14/18 05:00 BUN/Creatinine Ratio 17.80 01/14/18 05:00 Glucose 120.8 mg/dL (74-106) H 01/14/18 05:00 Hemoglobin A1c 5.99 (4.0-6.0) 01/13/18 20:53 Calcium 8.91 mg/dL (8.4-10.2) 01/14/18 05:00 Total Bilirubin 0.17 mg/dL (0.2-1.3) L 01/14/18 05:00 AST 43.8 U/L (14-36) H 01/14/18 05:00 ALT 45.9 U/L (0-35) H 01/14/18 05:00 Alkaline Phosphatase 88.2 U/L (38-126) 01/14/18 05:00 Total Creatine Kinase 62.8 U/L (30-135) 01/14/18 05:00 Troponin I < 0.012 ng/ml (0.0000-0.120) 01/14/18 05:00 Total Protein 6.29 g/dL (6.3-8.2) L 01/14/18 05:00 Albumin 3.43 g/dL (3.5-5.0) L 01/14/18 05:00 Globulin 2.86 01/14/18 05:00 Albumin/Globulin Ratio 1.19 01/14/18 05:00 TSH 2.020 uIU/L (0.465-4.68) 01/13/18 20:53 Stool H. pylori Ag Negative (NEGATIVE) 01/13/18 20:40 Stress Test Treadmill Negative. CXR Negative. Education Provided to Patient and Family: 1. Chest Pain/Causes/What to Do 2. Diabetic/Cardiac Diet 3. Obesity: Weight Loss. Follow-ups: 1. F/U w/ me in office in 1 week. Disposition: HOME SELF-CARE Hospital Course: Patient was seen in ER last night 01/14/18 with Atypical chest pain, non cardiac. Home meds were continued, labs evaluated, imaging from ER evaluated and there were no major findings. Overnight, she did well, good urine output, labs stable, mildly worsening Hgb compared to admit but reasonable. Renal function stable, Uout 0.5ml/kg/hour. She was given home meds overnight and this am had stress test via treadmill. Troponin negative x 3, CK negative x 3, H. Pylori stool ag was negative. She noted pain was 50+% reduced and that carafate/protonix were doing okay. ON nurse notes reviewed. D/w nurse am of d/ c and no new issues to report. She did great through stay and passed stress test. REviewed with patient non cardiac etiology for her pain. Discussed that she is okay to continue with her current meds. We will continue carafate, we will add protonix but increase to 2x daily x 1 week. I will see her in office. REgarding her DM, her a1c was repeated as ~60+ days from last check and this was stable. TSH was stable for her hypothyroidism. Telemetry showed Sinus tachy and NSR with 1st degree AV block. She felt fine, was ready to leave. Ate breakfast well, dinner well. No complaints. stool showed no H. Pylori. She had no diarrhea. Overall uneventful hospitalization, r/o ACS complete and she had non cardiac atypical chest pain. D/W her other possibilities. CXR was clean. STomach is possible etiology, and GI referral for ?EGD can be made as outpatient. She agreed with plan. F/U in office as listed. Plan: 1. D/C Home 2. Continue Home meds 3. Diabetic diet 4. Activity as tolerated 5. Weight loss encouraged 6. F/U in office 1 week 7. Carafate 4x daily, protonix BID x 5 days then daily. 8. Avoid dairy as able to see if this helps. 9. Consider outpatient referral to GI for EGD. 10. F/U as needed in ER if worsening or if symptoms return or new symptoms develop. 20 minutes spent in discharge today/Education of patient. After stress negative she was ready to go. Med Rec completed. Plan to f/u in office d/w patient.
[2018-01-14 10:23] VITALS: BP 130/78; TEMP 98.5
--- NOTE | 2018-01-14 12:28 | STRESSECHO ---
Date of Test:01/14/18 Ordering Physician: DR. ERIN CHONG Occupation: DISABLED Reason for Exam: ATYPICAL CHEST PAIN, HYPERTENSION Smoking History: QUIT 10 YRS AGO Height: 63" Weight: 233 LBS Current Medications: ZOLOFT, SEROQUEL, SYNTHROID, ASA, BENZTROPINE, PROTONIX, CARAFATE, ZOFRAN, MECLIZINE, LIPITOR, METFORMIN, REQUIP, DICYCLOMINE, PROPRANOLOL Resting EKG: SINUS RHYTHM/ NONSPECIFIC ST-T WAVE CHANGES Target Heart Rate: 141/166 S-T SEGMENT STAGE MPH/GRADE HEART RATE BPM BLOOD PRESSURE MMHG RHYTHM +/- ELEVATION DEPRESSION SYMPTOMS,COMMENTS AT REST 100 BPM 118/78 MMHG SR X NONE 1 1.7/10% 138 BPM SR X NONE 2 2.5/12% 3 3.4/14% 4 4.2/16% 5 5.0/18% Immediately After 148 BPM SR X SHORT OF BREATH Minutes Post Exercise 3:00 114 BPM 150/88 MMHG SR X NO COMMENTS Minutes Post Exercise 5:00 106 BPM 120/90 MMHG SR X NO COMMENTS DURATION OF EXERCISE: 3:00 MAXIMUM HEART RATE REACHED: 148 BPM REASON FOR TERMINATION: SHORT OF BREATH 90% OXYGEN SATURATION ON ROOM AIR WITH EXERCISE METS 5.8 INTERPRETATION: 1. NO EVIDENCE OF ISCHEMIA BY ST-T WAVE 2. NO CHEST PAIN OR CHEST DISCOMFORT 3. BLOOD PRESSURE RESPONSE: NORMAL AT REST AND WITH EXERCISE 4. NO ARRHYTHMIAS NORMAL LEFT VENTRICULAR CONTRACTILITY--RESTING AND POST EXERCISE MTDD
--- NOTE | 2018-01-14 12:30 | ECHOSTRESS ---
Date of Exam: 01/14/18 Ordering Physician: DR. ERIN CHONG Reason for Echo: ATYPICAL CHEST PAIN, STRESS TEST--NO ISCHEMIA M-Mode Normal Adult Results LV Dimensions Normal Adult Results AoV Opening excursions >1.6 LVEDD-base- 3.5-5.8 Ao root dimensions 2.0-3.7 LVESD-base- 3.1-4.6 L. Atrium dimensions 1.9-3.8 Post. Wall thickness 0.8-1.1 IV septum (thickness) 0.7-1.2 Post. Wall excursion 0.72-1.3 Septal motion Systolic motion R. Ventricular cavity 1.5-2.0 LVEF 60% Paradoxical septal wall motion 2-D: NORMAL LEFT VENTRICULAR CONTRACTILITY--RESTING AND POST EXERCISE M-MODE: MV: AV: TV: PV: CHAMBER SIZE: WALL MOTION: NORMAL LEFT VENTRICULAR CONTRACTILITY--RESTING AND POST EXERCISE PERICARDIUM: INTERPRETATION: 1. NORMAL LEFT VENTRICULAR CONTRACTILITY--RESTING AND POST EXERCISE MTDD
[2018-01-14] MEDS ORDERED: NON-FORMULARY MEDICATION (Sertraline Hcl [Zoloft] 100 MG) PO SCH (21:00)
[2018-01-14] MEDS ORDERED: DIVALPROEX SODIUM PO SCH (21:00)
== END 2018-01-14 09:59 | disposition home or self-care (01) ==
LOC: ED 13:16 → MEDSURG A 15:06
PROVIDERS: ADMIT Family Medicine; ATTEND Family Medicine
DX: K21.9 Gastro-esophageal reflux disease without esophagitis (principal); E11.9 Type 2 diabetes mellitus without complications; E03.9 Hypothyroidism, unspecified; I10 Essential (primary) hypertension; F39 Unspecified mood [affective] disorder; Z87.11 Personal history of peptic ulcer disease
CPT/HCPCS: 36415; 80053; 82550; 82962; 83036; 84443; 84484; 85025; 87338; 93005; 93010; 99284

== ENCOUNTER 2018-01-21 16:05 | Outpatient (CLI) | payer OTHER | END 2018-01-21 16:06 | disposition home or self-care (01) | LOC: FCC-LAB 16:05 | PROVIDERS: ATTEND Family Medicine | DX: N30.90 Cystitis, unspecified without hematuria (principal) | CPT/HCPCS: 87086 ==

== ENCOUNTER 2018-06-19 16:18 | Outpatient (CLI) | payer OTHER | END 2018-06-19 16:19 | disposition home or self-care (01) | LOC: LAB 16:18 | PROVIDERS: ATTEND Family Medicine | DX: K21.9 Gastro-esophageal reflux disease without esophagitis (principal); R10.13 Epigastric pain | CPT/HCPCS: 87338 ==

== ENCOUNTER 2018-06-23 08:49 | Outpatient (CLI) | payer OTHER ==
--- NOTE | 2018-06-23 09:47 | DI ---
EXAM: Fluoroscopic upper GI HISTORY: Reflux. COMPARISON: CT abdomen pelvis 06/27/2017 and multiple priors FINDINGS: The time fluoroscopic evaluation was performed by Dr. Richard Ngo. The esophagus demons trates a normal stripping wave with no filling defect, stenosis or obstruction. Contrast passes thro ugh the GE junction and the proximal stomach without difficulty. Postsurgical changes are noted in t he cervical spine. The stomach is normal without mass or abnormality. Contrast passes through the p ylorus and into the duodenum which crosses midline without evidence of malrotation. There is reflux of contrast into the mid-esophagus. IMPRESSION: 1. Gastroesophageal reflux to the level of the mid esophagus. 2. No additional abnormality is identified. HISTORY: . COMPARISON: FINDINGS: IMPRESSION:
== END 2018-06-23 08:50 | disposition home or self-care (01) ==
LOC: RAD 08:49
PROVIDERS: ATTEND Family Medicine
DX: K21.9 Gastro-esophageal reflux disease without esophagitis (principal); R13.10 Dysphagia, unspecified

== ENCOUNTER 2019-09-09 15:51 | Inpatient (IN) ==
[2019-09-09] MEDS ORDERED: SODIUM CHLORIDE 1,000 ML IV STA (16:23)
--- NOTE | 2019-09-09 16:23 | ED.PDOC ---
General ED Provider: Dr. AMINAH VASQUEZ MD Chief Complaint: Shortness of Air Stated Complaint: mild off and on cough and fever for 3 days with diffuse aches, no rash, no injury, hx left foot surgery 5 weeks ago, hx dm Time Seen by Physician: 16:19 Mode of Arrival: Walk-In Information Source: Patient Primary Care Provider: ERIN CHONG MD Nursing and Triage Documentation Reviewed and Agree: Yes Does patient meet sepsis criteria?: No System Inflammatory Response Syndrome: Not Applicable Sepsis Protocol: For patient's 13 years and over: Temp is 96.8 and below OR 101 and greater Pulse >90 BPM Resp >20/minute Acutely Altered Mental Status Are patient's symptoms suggestive of a new infection, such as: -Pneumonia -Skin, Soft Tissue -Endocarditis -UTI -Bone, Joint Infection -Implantable Device -Acute Abdominal Infection -Wound Infection -Meningitis -Blood Stream Catheter Infection -Unknown Respiratory Complaint Exam Respiratory Complaint/Exam Onset/Duration: 3 days Symptoms Are: Still present Initial Severity: Mild Current Severity: Mild Character: Reports Dry cough Associated Signs and Symptoms: Reports Fever Review of Systems Review Of Systems Constitutional: Reports Fever and Malaise Eyes: Denies Vision change Ears, Nose, Mouth, Throat: Denies Throat pain Respiratory: Reports Cough and Short of air Cardiac: Denies Chest pain GI: Denies Abdominal pain and Vomiting : Denies Burning Musculoskeletal: Denies Neck pain Skin: Denies Rash and Cyanosis Neurological: Denies Cognitive dysfunction All Other Systems: Other [facility] Medical History Acid reflux Anxiety Asthma Bipolar 1 disorder Hyperlipidemia Tachycardia Thyroid disorder Vitamin D deficiency Family History SISTER Diabetes Cancer BROTHER Diabetes Social History Smoking and tobacco status: Former smoker Tobacco: How many years used: 30 Smoking status stop date: 04/22/94 Quit status: quit date established Second hand smoke exposure: No Alcohol intake: never Counseling given: No Counseling provided: none Substance use type: does not use Counseling given: No Counseling provided: none Charito/yarsani: NONE Special charito needs: No Agree to transfusion: Yes Adopted: No Caregiver/support person: No Foster care: No Household members: none Housing: apartment Marital status: D Lives independently: Yes Daycare: no daycare Number of children: 2 Number of grandchildren: 2 Highest education level completed: some college, no degree Financial difficulty paying for basics: not very hard service: No longterm: No Current occupational status: disabled Current occupational exposures/hazards: No Pets and animals: Yes (dog) Leisure activites: reading and other History of recent travel: No Sexually active: No Do you think of yourself as: straight/heterosexual Current gender identity: female Seatbelt use: always Helmet use: No Drives intoxicated or rides with intoxicated four horse hitch driver: No Current diet type/program: regular Well-balanced diet: about half the time Caffeine: Yes Eating out: 1-3 times/week Reads food labels: sometimes During the past year weight has: remained stable Water heater temperature set < 120 degrees: Yes Working smoke detector in home: Yes Fire extinguisher in home: Yes Carbon monoxide detector in home: No Firearms in home: No What type of physical activity do you participate in?: walking Physical activity functional status: independent ambulation How many days of moderate to strenuous exercise, like a brisk walk, did you do in the last 7 days: 1 Female Reproductive History Menstrual Hx Hysterectomy: Yes Hx Tubal Ligation: No Physical Exam Physical Exam Appearance: Reports Well-appearing Ill-appearing: None Pain Distress: None Eyes: Reports LU, EOMI and Conjunctiva clear ENT: Reports Oropharynx normal Neck: Supple Respiratory: Reports Airway patent, Breath sounds clear and Breath sounds equal Cardiovascular: Reports RRR GI/: Reports Soft and Nontender Musculoskeletal: Reports No edema Skin: Reports Warm (sutured toes intact, no drainage or erythema, sen and pulses intact) and Dry Neurological: Reports Sensation intact Psychiatric: Reports Affect appropriate Interpretation Radiology Interpretation Radiology Interpretation By: Radiologist Exam Interpreted: CXR Xray Comments: left side pneumonia Re-Evaluation Re-Evaluation Time of Re-Evaluation: 18:34 Status: Improved Vital Signs Stable: Yes Appearance: NAD Lungs: Other (no labored breathing) Skin: Warm and Dry Neuro: Alert and Oriented X3 CV: RRR Additional Comments: pt diagnosed with left side pneumonia and started on Levaquin, marginal oxygenation and some mild CO2 retention, normal lactate, covid test pending, admit d/w Dr Chong Critical Care Note Critical Care Note Total Time (mins): 0 Course Course Hematology/Chemistry: 09/09/19 16:44 09/09/19 16:44 Orders, Labs, Meds: Lab Review 09/09/19 09/09/19 09/09/19 16:35 16:44 16:44 WBC 12.39 H RBC 4.58 Hgb 13.1 Hct 40.6 MCV 88.6 MCH 28.6 MCHC 32.3 RDW Coeff of [place] 12.9 Plt Count 198 Immature Gran % (Auto) 1.7 Neut % (Auto) 69.6 Lymph % (Auto) 16.0 [place] % (Auto) 11.5 H Eos % (Auto) 0.9 Baso % (Auto) 0.3 Neut # (Auto) 8.6 H Lymph # (Auto) 2.0 [place] # (Auto) 1.4 Eos # (Auto) 0.1 Baso # (Auto) 0.0 Immature Gran # (Auto) 0.2 Puncture Site O2 Saturation ABG pH ABG pCO2 ABG pO2 ABG HCO3 ABG Total CO2 ABG Base Excess Codey Test FiO2 % Sodium 139.6 Potassium 4.04 Chloride 99.5 Carbon Dioxide 29.9 Anion Gap 14.24 BUN 10.1 Creatinine 0.65 Estimated GFR (MDRD) 94.00 BUN/Creatinine Ratio 15.53 Glucose 118.6 H Lactic Acid Calcium 9.74 Total Bilirubin 0.29 AST 22.4 ALT 16.0 Alkaline Phosphatase 105.3 Total Protein 7.58 Albumin 4.25 Globulin 3.33 Albumin/Globulin Ratio 1.27 SARS-CoV-2 RNA (RT-PCR) 09/09/19 09/09/19 16:44 17:24 WBC RBC Hgb Hct MCV MCH MCHC RDW Coeff of [place] Plt Count Immature Gran % (Auto) Neut % (Auto) Lymph % (Auto) [place] % (Auto) Eos % (Auto) Baso % (Auto) Neut # (Auto) Lymph # (Auto) [place] # (Auto) Eos # (Auto) Baso # (Auto) Immature Gran # (Auto) Puncture Site R radial O2 Saturation 92.0 L ABG pH 7.386 ABG pCO2 46.9 H ABG pO2 67.0 L ABG HCO3 28.2 H ABG Total CO2 30 H ABG Base Excess 3 H Codey Test Positive FiO2 % 21.0 Sodium Potassium Chloride Carbon Dioxide Anion Gap BUN Creatinine Estimated GFR (MDRD) BUN/Creatinine Ratio Glucose Lactic Acid 1.29 Calcium Total Bilirubin AST ALT Alkaline Phosphatase Total Protein Albumin Globulin Albumin/Globulin Ratio SARS-CoV-2 RNA (RT-PCR) Orders Category Date Time Status ABG DRAW REQUEST Stat CARDIO 09/09/19 17:24 Completed OXYGEN Routine CARDIO 09/09/19 19:21 Ordered ACTIVITY .BR with BRP CARE 09/09/19 19:20 Active GIVE HS SNACK 2100 CARE 09/09/19 19:21 Active INTAKE & OUTPUT Q8HR CARE 09/09/19 19:20 Active VITAL SIGNS Q8HR CARE 09/09/19 19:20 Active ADA 1800 DOLORES. DIET DIETARY 09/09/19 Dinner Ordered HS SNACK DIETARY 09/09/19 Dinner Ordered ED APPLY O2 .ONCE EMERGENCY 09/09/19 17:23 Active ABG Stat LAB 09/09/19 17:24 Completed BLOOD CULTURE Stat LAB 09/09/19 17:50 Ordered CBC W/ AUTO DIFF DAILY@0600 LAB 09/10/19 06:00 Ordered CBC W/ AUTO DIFF DAILY@0600 LAB 09/11/19 06:00 Ordered CBC W/ AUTO DIFF Stat LAB 09/09/19 16:44 Completed COMPREHENSIVE METABOLIC PANEL DAILY@0600 LAB 09/10/19 06:00 Ordered COMPREHENSIVE METABOLIC PANEL DAILY@0600 LAB 09/11/19 06:00 Ordered COMPREHENSIVE METABOLIC PANEL Stat LAB 09/09/19 16:44 Completed COVID19, PCR IDPH Stat LAB 09/09/19 16:35 Completed LACTIC ACID Stat LAB 09/09/19 16:44 Completed Acetaminophen [Tylenol] MEDS 09/09/19 19:20 Ordered 650 mg PO Q4H PRN Insulin Regular, Human [Humulin R] MEDS 09/09/19 19:20 Ordered See Protocol SUBCUT PRN PRN Levofloxacin/D5w [Levaquin 750 mg/150 ml D5w] MEDS 09/10/19 09:00 Ordered 750 mg in 150 ml IV DAILY Levofloxacin/D5w [Levaquin 750 mg/150 ml D5w] MEDS 09/09/19 17:22 Discontinued 750 mg in 150 ml IV ONCE Pantoprazole Sodium [Protonix] MEDS 09/09/19 21:00 Active 40 mg PO BID Propranolol HCl [Inderal] MEDS 09/10/19 09:00 Active 40 mg PO DAILY Sodium Chloride 0.9% [Sodium Chloride] 1,000 ml MEDS 09/09/19 19:30 Ordered IV 75 mls/hr Sodium Chloride 0.9% [Sodium Chloride] 1,000 ml MEDS 09/09/19 16:23 Discontinued IV BOLUS RESUSCITATION STATUS Routine OTHERS 09/09/19 19:20 Ordered CHEST, 1V AP ONLY Stat RADS 09/09/19 16:15 Completed Medications Generic Name Dose Route Start Last Admin Trade Name Freq PRN Reason Stop Dose Admin Acetaminophen 650 mg 09/09/19 19:20 Tylenol PO Q4H PRN Mild Pain Sodium Chloride 1,000 mls @ 75 mls/hr 09/09/19 19:30 Sodium Chloride IV .[id number] YEN Levofloxacin/Dextrose 750 mg in 150 mls @ 100 mls/hr 09/10/19 09:00 Levaquin 750 Mg/150 Ml D5w IV 09/13/19 08:59 DAILY YEN Insulin Human Regular 0 unit 09/09/19 19:20 Humulin R SUBCUT PRN PRN Hyperglycemia Protocol Pantoprazole Sodium 40 mg 09/09/19 21:00 Protonix PO BID YEN Propranolol HCl 40 mg 09/10/19 09:00 Inderal PO DAILY YEN Discontinued Medications Generic Name Dose Route Start Last Admin Trade Name Freq PRN Reason Stop Dose Admin Sodium Chloride 1,000 mls @ 1,000 mls/hr 09/09/19 16:23 09/09/19 17:08 Sodium Chloride IV 09/09/19 17:22 1,000 mls/hr BOLUS STA Administration Levofloxacin/Dextrose 750 mg in 150 mls @ 100 mls/hr 09/09/19 17:22 09/09/19 17:38 Levaquin 750 Mg/150 Ml D5w IV 09/09/19 18:51 100 mls/hr ONCE STA Administration Vital Signs: Temp Pulse Resp BP Pulse Ox 09/09/19 17:11 89 20 93 L 09/09/19 15:52 99.0 F 96 H 20 143/73 H 94 L Discharge Plan Discharge Patient Disposition: ADMITTED INPATIENT Discharge Problem: Pneumonia Qualifiers: Pneumonia type: due to unspecified organism Laterality: left Lung location: unspecified part of lung Qualified Code(s): J18.9 - Pneumonia, unspecified organism ED Provider: AMINAH VASQUEZ Condition: Stable
[2019-09-09 16:55] LABS: HEMATOCRIT 40.6 % (37.0-47.0)
--- NOTE | 2019-09-09 17:01 | DI ---
EXAM: Chest one view, frontal view only. HISTORY: Fever. COMPARISON: 01/13/2018. FINDINGS: The heart size is normal. There is no pulmonary vascular congestion. Patchy consolidatio n seen in the left mid to lower lung zone with general interstitial prominence throughout the affecte d lung as well. Otherwise, the lungs are clear. No pleural effusion or pneumothorax is seen. No ac lary osseous abnormality is identified. IMPRESSION: Left lung pneumonia. Follow-up recommended to confirm resolution.
[2019-09-09] MEDS ORDERED: LEVAQUIN 750 MG/150 ML D5W 750 MG/150 ML BAG IV STA (17:22)
[2019-09-09] MEDS ORDERED: TYLENOL PO PRN (19:20)
[2019-09-09] MEDS ORDERED: HUMULIN R SUBCUT PRN (19:20)
[2019-09-09 20:40] VITALS: BMI 38.7
[2019-09-09] MEDS ORDERED: PROTONIX PO SCH (21:00)
[2019-09-09] MEDS ORDERED: KLONOPIN PO PRN (21:23)
[2019-09-09] MEDS ORDERED: COGENTIN PO PRN ×2 (21:34→22:23)
[2019-09-09] MEDS ORDERED: ZOLOFT PO SCH (21:38)
[2019-09-09] MEDS: LIPITOR PO SCH (21:59)
[2019-09-09] MEDS: SEROQUEL PO SCH (21:59)
[2019-09-09] MEDS: ASPIRIN EC PO SCH (21:59)
[2019-09-09] MEDS: BENTYL PO SCH (21:59)
[2019-09-09] MEDS: SODIUM CHLORIDE 1,000 ML IV SCH (22:00)
[2019-09-09] MEDS: DEPAKOTE PO SCH ×2 (22:00→22:42)
[2019-09-10 05:35] LABS: HEMATOCRIT 35.5 % (37.0-47.0)
[2019-09-10] MEDS: SYNTHROID PO SCH (05:58)
--- NOTE | 2019-09-10 08:42 | PCM ---
Chief Complaint Chief Complaint: Short of Breath History of Present Illness History of Present Illness: mild off and on cough and fever for 3 days with diffuse aches, no rash, no injury, hx left foot surgery 5 weeks ago, hx dm Review of Systems Constitutional: Denies fever, chills, weakness, sweats, fatigue, loss of appetite and other Eyes: Denies blurred vision, double-vision, discharge, itching, pain, redness, photophobia and other Ears: Denies pain, bleeding, drainage, ringing, hearing loss and other Nose: Denies bleeding, congestion, discharge and other Throat: Denies pain, swelling, voice change and other Mouth: Denies bleeding, pain, swelling and other Respiratory: Reports cough and shortness of air Cardiovascular: Denies chest pain, left arm pain, diaphoresis, PND, orthopnea, edema, palpitations, syncope and other Gastrointestinal: Denies abdominal pain, nausea, vomiting, diarrhea, melena, hematemesis, hematochezia, dysphagia, constipation and other Genitourinary: Denies dysuria, hematuria, frequency, incontinence, flank pain, vaginal discharge, abnormal bleeding, pelvic pain and other Neurological: Denies headache, dizziness, seizure, numbness, weakness, speech difficulty, problems with walking, tremor, fainting and other Musculoskeletal: Denies pain, swelling in joints and other Skin: Denies rash, pruritus, lacerations, wounds, bruising and other Immunology: Denies hives, itching, frequent infections, difficulty healing and other Hematology: Denies easy bruising, easy bleeding, swollen glands and other Endocrine: Denies weight changes, cold intolerance, heat intolerance, excessive thirst, excessive hunger, polyuria and other Psychiatric: Denies depression, anxiety, sleeplessness, hopelessness, suicidal, hallucinations and other Habits: Denies tobacco use, substance use, alcohol use and other Allergies Allergies Allergy/AdvReac Type Severity Reaction Status Date / Time latex AdvReac Mild Rash Verified 09/09/19 15:58 codeine phosphate AdvReac Verified 09/09/19 15:58 [From Tylenol-Codeine #3] [facility] Medical History Acid reflux Anxiety Asthma Bipolar 1 disorder Hyperlipidemia Tachycardia Thyroid disorder Vitamin D deficiency Surgical History History of musculoskeletal system surgery History of surgery Status post appendectomy Status post cholecystectomy Status post hysterectomy Family History SISTER Diabetes Cancer BROTHER Diabetes Social History Smoking and tobacco status: Former smoker Tobacco: How many years used: 30 Smoking status stop date: 04/22/94 Quit status: quit date established Second hand smoke exposure: No Alcohol intake: never Counseling given: No Counseling provided: none Substance use type: does not use Counseling given: No Counseling provided: none Charito/sikh: NONE Special charito needs: No Agree to transfusion: Yes Adopted: No Caregiver/support person: No Foster care: No Household members: none Housing: apartment Marital status: D Lives independently: Yes Daycare: no daycare Number of children: 2 Number of grandchildren: 2 Highest education level completed: some college, no degree Financial difficulty paying for basics: not very hard service: No intermediate: No Current occupational status: disabled Current occupational exposures/hazards: No Pets and animals: Yes (dog) Leisure activites: reading and other History of recent travel: No Sexually active: No Do you think of yourself as: straight/heterosexual Current gender identity: female Seatbelt use: always Helmet use: No Drives intoxicated or rides with intoxicated sprinkler truck driver: No Current diet type/program: regular Well-balanced diet: about half the time Caffeine: Yes Eating out: 1-3 times/week Reads food labels: sometimes During the past year weight has: remained stable Water heater temperature set < 120 degrees: Yes Working smoke detector in home: Yes Fire extinguisher in home: Yes Carbon monoxide detector in home: No Firearms in home: No What type of physical activity do you participate in?: walking Physical activity functional status: independent ambulation How many days of moderate to strenuous exercise, like a brisk walk, did you do in the last 7 days: 1 Medications Medications: Medications Generic Name Dose Route Start Last Admin Trade Name Freq PRN Reason Stop Dose Admin Acetaminophen 650 mg 09/09/19 19:20 Tylenol PO Q4H PRN Mild Pain Aspirin 81 mg 09/09/19 21:39 09/09/19 21:59 Aspirin Ec PO 81 mg BEDTIME YEN Administration Atorvastatin Calcium 20 mg 09/09/19 21:39 09/09/19 21:59 Lipitor PO 20 mg BEDTIME YEN Administration Benztropine Mesylate 0.5 mg 09/09/19 22:23 Cogentin PO DAILY PRN Anxiety Clonazepam 1 mg 09/09/19 21:23 Klonopin PO TID PRN Anxiety Dicyclomine HCl 10 mg 09/09/19 21:39 09/09/19 21:59 Bentyl PO 10 mg TID YEN Administration Divalproex Sodium 1,000 mg 09/09/19 22:30 09/09/19 22:42 Depakote PO 1,000 mg BEDTIME YEN Administration Sodium Chloride 1,000 mls @ 75 mls/hr 09/09/19 19:30 09/09/19 22:00 Sodium Chloride IV 75 mls/hr .[id number] YEN Administration Levofloxacin/Dextrose 750 mg in 150 mls @ 100 mls/hr 09/10/19 21:00 Levaquin 750 Mg/150 Ml D5w IV 09/13/19 20:59 BEDTIME [facility] Insulin Human Regular 0 unit 09/09/19 19:20 Humulin R SUBCUT PRN PRN Hyperglycemia Protocol Levothyroxine Sodium 25 mcg 09/10/19 06:30 09/10/19 05:58 Synthroid PO 25 mcg DAILY@0630 YEN Administration Meclizine HCl 25 mg 09/10/19 09:00 Antivert PO DAILY YEN Pantoprazole Sodium 40 mg 09/10/19 08:00 Protonix PO BIDAC [facility] Propranolol HCl 40 mg 09/10/19 09:00 Inderal PO DAILY [facility] Quetiapine Fumarate 600 mg 09/09/19 21:38 09/09/19 21:59 Seroquel PO 600 mg BID YEN Administration Ropinirole HCl 0.5 mg 09/10/19 09:00 Requip PO DAILY YEN Sertraline HCl 200 mg 09/10/19 21:00 Zoloft PO BEDTIME [facility] Body Composition Height: 5 ft 3 in Weight: 219 lb Body Mass Index (BMI): 38.7 Vital Signs Temperature: 98.1 F Pulse Rate: 100 Respiratory Rate: 16 Blood Pressure: 116/60 O2 Sat by Pulse Oximetry: 94 Physical Examination Appearance: Reports Well-appearing, No pain distress, Well-nourished and Obese Ill-appearing: Mild Pain Distress: None Eyes: Reports LU, EOMI, Conjunctiva clear, Conjunctiva inflammed, Conjunctiva pale, Right pupil size and Left pupil size ENT: Reports Ears normal, Nose normal, Oropharynx normal, TMs Occluded, Rhinorrhea, Epistaxis, Erythema, Exudate and Dry mucosa Neck: Supple Respiratory: Reports Airway patent and Respirations nonlabored Cardiovascular: Reports RRR GI/: Reports Soft Musculoskeletal: Reports Normal strength Skin: Reports Warm Neurological: Reports Sensation intact, Motor intact, Alert to verbal and Alert to pain Psychiatric: Reports Affect appropriate Lab/Tests/Diagnostic Imaging Lab/Tests/Diagnostic Imaging: Lab Review 09/09/19 09/09/19 09/09/19 16:35 16:44 16:44 WBC 12.39 H RBC 4.58 Hgb 13.1 Hct 40.6 MCV 88.6 MCH 28.6 MCHC 32.3 RDW Coeff of [place] 12.9 Plt Count 198 Immature Gran % (Auto) 1.7 Neut % (Auto) 69.6 Lymph % (Auto) 16.0 [place] % (Auto) 11.5 H Eos % (Auto) 0.9 Baso % (Auto) 0.3 Neut # (Auto) 8.6 H Lymph # (Auto) 2.0 [place] # (Auto) 1.4 Eos # (Auto) 0.1 Baso # (Auto) 0.0 Immature Gran # (Auto) 0.2 Puncture Site O2 Saturation ABG pH ABG pCO2 ABG pO2 ABG HCO3 ABG Total CO2 ABG Base Excess Codey Test FiO2 % Sodium 139.6 Potassium 4.04 Chloride 99.5 Carbon Dioxide 29.9 Anion Gap 14.24 BUN 10.1 Creatinine 0.65 Estimated GFR (MDRD) 94.00 BUN/Creatinine Ratio 15.53 Glucose 118.6 H Lactic Acid Calcium 9.74 Total Bilirubin 0.29 AST 22.4 ALT 16.0 Alkaline Phosphatase 105.3 Total Protein 7.58 Albumin 4.25 Globulin 3.33 Albumin/Globulin Ratio 1.27 SARS-CoV-2 RNA (RT-PCR) 09/09/19 09/09/19 09/10/19 16:44 17:24 05:10 WBC 9.37 RBC 3.98 L Hgb 11.4 L Hct 35.5 L MCV 89.2 MCH 28.6 MCHC 32.1 RDW Coeff of [place] 13.0 Plt Count 177 Immature Gran % (Auto) 2.3 Neut % (Auto) 60.6 Lymph % (Auto) 23.2 [place] % (Auto) 12.2 H Eos % (Auto) 1.3 Baso % (Auto) 0.4 Neut # (Auto) 5.7 Lymph # (Auto) 2.2 [place] # (Auto) 1.1 Eos # (Auto) 0.1 Baso # (Auto) 0.0 Immature Gran # (Auto) 0.2 Puncture Site R radial O2 Saturation 92.0 L ABG pH 7.386 ABG pCO2 46.9 H ABG pO2 67.0 L ABG HCO3 28.2 H ABG Total CO2 30 H ABG Base Excess 3 H Codey Test Positive FiO2 % 21.0 Sodium Potassium Chloride Carbon Dioxide Anion Gap BUN Creatinine Estimated GFR (MDRD) BUN/Creatinine Ratio Glucose Lactic Acid 1.29 Calcium Total Bilirubin AST ALT Alkaline Phosphatase Total Protein Albumin Globulin Albumin/Globulin Ratio SARS-CoV-2 RNA (RT-PCR) 09/10/19 05:10 WBC RBC Hgb Hct MCV MCH MCHC RDW Coeff of [place] Plt Count Immature Gran % (Auto) Neut % (Auto) Lymph % (Auto) [place] % (Auto) Eos % (Auto) Baso % (Auto) Neut # (Auto) Lymph # (Auto) [place] # (Auto) Eos # (Auto) Baso # (Auto) Immature Gran # (Auto) Puncture Site O2 Saturation ABG pH ABG pCO2 ABG pO2 ABG HCO3 ABG Total CO2 ABG Base Excess Codey Test FiO2 % Sodium 140.5 Potassium 3.60 Chloride 101.4 Carbon Dioxide 31.7 H Anion Gap 11.00 BUN 9.6 Creatinine 0.67 Estimated GFR (MDRD) 91.00 BUN/Creatinine Ratio 14.32 Glucose 101.6 Lactic Acid Calcium 8.71 Total Bilirubin 0.29 AST 30.3 ALT 13.8 Alkaline Phosphatase 82.9 Total Protein 6.28 L Albumin 3.35 L Globulin 2.93 Albumin/Globulin Ratio 1.14 SARS-CoV-2 RNA (RT-PCR) Orders Category Date Time Status ADMIT PATIENT INPATIENT .TO MEDSUR (NON-MONITORED ADMISSION 09/09/19 20:25 Active BED) ABG DRAW REQUEST Stat CARDIO 09/09/19 17:24 Completed OXYGEN Routine CARDIO 09/09/19 19:21 Completed ACCUCHECK (MED/SURG, SCU) [BLOOD GLUCOSE MONITORING] CARE 09/10/19 07:13 Active 0630,1100,1700,2100 ACTIVITY .BR with BRP CARE 09/09/19 19:20 Active GIVE HS SNACK 2100 CARE 09/09/19 19:21 Active INTAKE & OUTPUT Q8HR CARE 09/09/19 19:20 Active VITAL SIGNS Q8HR CARE 09/09/19 19:20 Active ADA 1800 DOLORES. DIET DIETARY 09/09/19 Dinner Ordered HS SNACK DIETARY 09/09/19 Dinner Ordered ED APPLY O2 .ONCE EMERGENCY 09/09/19 17:23 Active ABG Stat LAB 09/09/19 17:24 Completed BLOOD CULTURE Stat LAB 09/09/19 17:00 Received CBC W/ AUTO DIFF DAILY@0600 LAB 09/10/19 05:10 Completed CBC W/ AUTO DIFF DAILY@0600 LAB 09/11/19 06:00 Ordered CBC W/ AUTO DIFF Stat LAB 09/09/19 16:44 Completed COMPREHENSIVE METABOLIC PANEL DAILY@0600 LAB 09/10/19 05:10 Completed COMPREHENSIVE METABOLIC PANEL DAILY@0600 LAB 09/11/19 06:00 Ordered COMPREHENSIVE METABOLIC PANEL Stat LAB 09/09/19 16:44 Completed COVID19, PCR IDPH Stat LAB 09/09/19 16:35 Completed LACTIC ACID Stat LAB 09/09/19 16:44 Completed Acetaminophen [Tylenol] MEDS 09/09/19 19:20 Active 650 mg PO Q4H PRN Aspirin [Aspirin EC] MEDS 09/09/19 21:39 Active 81 mg PO BEDTIME Aspirin [Aspirin EC] MEDS 09/10/19 21:00 Discontinued 81 mg PO BEDTIME Atorvastatin Calcium [Lipitor] MEDS 09/09/19 21:39 Active 20 mg PO BEDTIME Atorvastatin Calcium [Lipitor] MEDS 09/10/19 21:00 Discontinued 20 mg PO BEDTIME Benztropine Mesylate [Cogentin] MEDS 09/09/19 22:23 Active 0.5 mg PO DAILY PRN Benztropine Mesylate [Cogentin] MEDS 09/09/19 21:34 Discontinued 0.5 mg PO PRN PRN Clonazepam [Klonopin] MEDS 09/09/19 21:23 Active 1 mg PO TID PRN Dicyclomine HCl [Bentyl] MEDS 09/09/19 21:39 Active 10 mg PO TID Dicyclomine HCl [Bentyl] MEDS 09/10/19 09:00 Discontinued 10 mg PO TID Divalproex Sodium [Depakote] MEDS 09/09/19 22:30 Active 1,000 mg PO BEDTIME Divalproex Sodium [Depakote] MEDS 09/09/19 21:38 Discontinued 500 mg PO BID Divalproex Sodium [Depakote] MEDS 09/10/19 09:00 Discontinued 500 mg PO BID Insulin Regular, Human [Humulin R] MEDS 09/09/19 19:20 Active See Protocol SUBCUT PRN PRN Levofloxacin/D5w [Levaquin 750 mg/150 ml D5w] MEDS 09/10/19 21:00 Active 750 mg in 150 ml IV BEDTIME Levofloxacin/D5w [Levaquin 750 mg/150 ml D5w] MEDS 09/09/19 17:22 Discontinued 750 mg in 150 ml IV ONCE Levothyroxine Sodium [Synthroid] MEDS 09/10/19 06:30 Active 25 mcg PO DAILY@0630 Meclizine HCl [Antivert] MEDS 09/10/19 09:00 Active 25 mg PO DAILY Pantoprazole Sodium [Protonix] MEDS 09/09/19 21:00 Discontinued 40 mg PO BID Pantoprazole Sodium [Protonix] MEDS 09/10/19 08:00 Active 40 mg PO BIDAC Propranolol HCl [Inderal] MEDS 09/10/19 09:00 Active 40 mg PO DAILY Quetiapine Fumarate [Seroquel] MEDS 09/09/19 21:38 Active 600 mg PO BID Quetiapine Fumarate [Seroquel] MEDS 09/10/19 09:00 Discontinued 600 mg PO BID Ropinirole HCl [Requip] MEDS 09/10/19 09:00 Active 0.5 mg PO DAILY Sertraline HCl [Zoloft] MEDS 09/10/19 21:00 Active 200 mg PO BEDTIME Sertraline HCl [Zoloft] MEDS 09/09/19 21:38 Discontinued 200 mg PO DAILY Sertraline HCl [Zoloft] MEDS 09/10/19 09:00 Discontinued 200 mg PO DAILY Sodium Chloride 0.9% [Sodium Chloride] 1,000 ml MEDS 09/09/19 19:30 Active IV 75 mls/hr Sodium Chloride 0.9% [Sodium Chloride] 1,000 ml MEDS 09/09/19 16:23 Discontinued IV BOLUS RESUSCITATION STATUS Routine OTHERS 09/09/19 19:20 Ordered CHEST, 1V AP ONLY Stat RADS 09/09/19 16:15 Completed Medications Generic Name Dose Route Start Last Admin Trade Name Freq PRN Reason Stop Dose Admin Acetaminophen 650 mg 09/09/19 19:20 Tylenol PO Q4H PRN Mild Pain Aspirin 81 mg 09/09/19 21:39 09/09/19 21:59 Aspirin Ec PO 81 mg BEDTIME YEN Administration Atorvastatin Calcium 20 mg 09/09/19 21:39 09/09/19 21:59 Lipitor PO 20 mg BEDTIME YEN Administration Benztropine Mesylate 0.5 mg 09/09/19 22:23 Cogentin PO DAILY PRN Anxiety Clonazepam 1 mg 09/09/19 21:23 Klonopin PO TID PRN Anxiety Dicyclomine HCl 10 mg 09/09/19 21:39 09/09/19 21:59 Bentyl PO 10 mg TID YEN Administration Divalproex Sodium 1,000 mg 09/09/19 22:30 09/09/19 22:42 Depakote PO 1,000 mg BEDTIME YEN Administration Sodium Chloride 1,000 mls @ 75 mls/hr 09/09/19 19:30 09/09/19 22:00 Sodium Chloride IV 75 mls/hr .[id number] YEN Administration Levofloxacin/Dextrose 750 mg in 150 mls @ 100 mls/hr 09/10/19 21:00 Levaquin 750 Mg/150 Ml D5w IV 09/13/19 20:59 BEDTIME YEN Insulin Human Regular 0 unit 09/09/19 19:20 Humulin R SUBCUT PRN PRN Hyperglycemia Protocol Levothyroxine Sodium 25 mcg 09/10/19 06:30 09/10/19 05:58 Synthroid PO 25 mcg DAILY@0630 YEN Administration Meclizine HCl 25 mg 09/10/19 09:00 Antivert PO DAILY YEN Pantoprazole Sodium 40 mg 09/10/19 08:00 Protonix PO BIDAC YEN Propranolol HCl 40 mg 09/10/19 09:00 Inderal PO DAILY [facility] Quetiapine Fumarate 600 mg 09/09/19 21:38 09/09/19 21:59 Seroquel PO 600 mg BID YEN Administration Ropinirole HCl 0.5 mg 09/10/19 09:00 Requip PO DAILY YEN Sertraline HCl 200 mg 09/10/19 21:00 Zoloft PO BEDTIME YEN Discontinued Medications Generic Name Dose Route Start Last Admin Trade Name Freq PRN Reason Stop Dose Admin Aspirin 81 mg 09/10/19 21:00 Aspirin Ec PO BEDTIME YEN Atorvastatin Calcium 20 mg 09/10/19 21:00 Lipitor PO BEDTIME YEN Benztropine Mesylate 0.5 mg 09/09/19 21:34 Cogentin PO PRN PRN Anxiety Dicyclomine HCl 10 mg 09/10/19 09:00 Bentyl PO TID YEN Divalproex Sodium 500 mg 09/10/19 09:00 Depakote PO BID YEN Divalproex Sodium 500 mg 09/09/19 21:38 Depakote PO BID YEN Sodium Chloride 1,000 mls @ 1,000 mls/hr 09/09/19 16:23 09/09/19 17:08 Sodium Chloride IV 09/09/19 17:22 1,000 mls/hr BOLUS STA Administration Levofloxacin/Dextrose 750 mg in 150 mls @ 100 mls/hr 09/09/19 17:22 09/09/19 17:38 Levaquin 750 Mg/150 Ml D5w IV 09/09/19 18:51 100 mls/hr ONCE STA Administration Pantoprazole Sodium 40 mg 09/09/19 21:00 09/09/19 21:59 Protonix PO 40 mg BID YEN Administration Quetiapine Fumarate 600 mg 09/10/19 09:00 Seroquel PO BID YEN Sertraline HCl 200 mg 09/10/19 09:00 Zoloft PO DAILY YEN Sertraline HCl 200 mg 09/09/19 21:38 09/09/19 21:58 Zoloft PO 200 mg DAILY YEN Administration Plan Plan: Impresson: LLL Pneumonia
[2019-09-10] MEDS: BENTYL PO SCH ×4 (08:45→20:46)
[2019-09-10] MEDS: SEROQUEL PO SCH ×3 (08:45→20:47)
[2019-09-10] MEDS: PROTONIX PO SCH ×2 (08:46→15:59)
[2019-09-10] MEDS: SODIUM CHLORIDE 1,000 ML IV SCH (08:47)
[2019-09-10] MEDS ORDERED: ANTIVERT PO SCH (09:00)
[2019-09-10] MEDS ORDERED: BENTYL PO SCH (09:00)
[2019-09-10] MEDS ORDERED: REQUIP PO SCH (09:00)
[2019-09-10] MEDS ORDERED: ZOLOFT PO SCH (09:00)
[2019-09-10] MEDS ORDERED: DEPAKOTE PO SCH (09:00)
[2019-09-10] MEDS ORDERED: SEROQUEL PO SCH (09:00)
[2019-09-10] MEDS ORDERED: INDERAL PO SCH (09:00)
[2019-09-10] MEDS: DEPAKOTE PO SCH ×3 (09:43→20:46)
--- NOTE | 2019-09-10 10:10 | PCM ---
Chief Complaint Chief Complaint: short of breath History of Present Illness History of Present Illness: mild to mod shortness of breath at rest and cough getting worse for 3 days, +fever, low oxygen saturation on room air at the clinic today (89%), 93% now, pt not on supplemental oxygen at home, +diffuse aches, no rash Review of Systems Constitutional: Reports fever, weakness and fatigue Eyes: Denies blurred vision and redness Ears: Denies drainage Nose: Reports congestion; Denies discharge Throat: Denies pain and voice change Mouth: Denies bleeding Respiratory: Reports cough and shortness of air; Denies wheeze and pain with breathing Cardiovascular: Denies chest pain Gastrointestinal: Denies abdominal pain and vomiting Genitourinary: Denies dysuria Neurological: Reports weakness; Denies headache, dizziness, speech difficulty and fainting Musculoskeletal: Denies swelling in joints Skin: Denies rash Immunology: Denies hives Hematology: Denies easy bruising Psychiatric: Denies depression Allergies Allergies Allergy/AdvReac Type Severity Reaction Status Date / Time latex AdvReac Mild Rash Verified 09/09/19 15:58 codeine phosphate AdvReac Verified 09/09/19 15:58 [From Tylenol-Codeine #3] [facility] Medical History Acid reflux Anxiety Asthma Bipolar 1 disorder Hyperlipidemia Tachycardia Thyroid disorder Vitamin D deficiency Surgical History History of musculoskeletal system surgery History of surgery Status post appendectomy Status post cholecystectomy Status post hysterectomy Family History SISTER Diabetes Cancer BROTHER Diabetes Social History Smoking and tobacco status: Former smoker Tobacco: How many years used: 30 Smoking status stop date: 04/22/94 Quit status: quit date established Second hand smoke exposure: No Alcohol intake: never Counseling given: No Counseling provided: none Substance use type: does not use Counseling given: No Counseling provided: none Charito/synagogue: NONE Special charito needs: No Agree to transfusion: Yes Adopted: No Caregiver/support person: No Foster care: No Household members: none Housing: apartment Marital status: D Lives independently: Yes Daycare: no daycare Number of children: 2 Number of grandchildren: 2 Highest education level completed: some college, no degree Financial difficulty paying for basics: not very hard service: No USP: No Current occupational status: disabled Current occupational exposures/hazards: No Pets and animals: Yes (dog) Leisure activites: reading and other History of recent travel: No Sexually active: No Do you think of yourself as: straight/heterosexual Current gender identity: female Seatbelt use: always Helmet use: No Drives intoxicated or rides with intoxicated moving van driver: No Current diet type/program: regular Well-balanced diet: about half the time Caffeine: Yes Eating out: 1-3 times/week Reads food labels: sometimes During the past year weight has: remained stable Water heater temperature set < 120 degrees: Yes Working smoke detector in home: Yes Fire extinguisher in home: Yes Carbon monoxide detector in home: No Firearms in home: No What type of physical activity do you participate in?: walking Physical activity functional status: independent ambulation How many days of moderate to strenuous exercise, like a brisk walk, did you do in the last 7 days: 1 Medications Medications: Medications Generic Name Dose Route Start Last Admin Trade Name Freq PRN Reason Stop Dose Admin Acetaminophen 650 mg 09/09/19 19:20 Tylenol PO Q4H PRN Mild Pain Aspirin 81 mg 09/09/19 21:39 09/09/19 21:59 Aspirin Ec PO 81 mg BEDTIME YEN Administration Atorvastatin Calcium 20 mg 09/09/19 21:39 09/09/19 21:59 Lipitor PO 20 mg BEDTIME YEN Administration Benztropine Mesylate 0.5 mg 09/09/19 22:23 Cogentin PO DAILY PRN Anxiety Clonazepam 1 mg 09/09/19 21:23 Klonopin PO TID PRN Anxiety Dicyclomine HCl 10 mg 09/09/19 21:39 09/10/19 08:45 Bentyl PO 10 mg TID YEN Administration Divalproex Sodium 1,000 mg 09/09/19 22:30 09/09/19 22:42 Depakote PO 1,000 mg BEDTIME YNE Administration Sodium Chloride 1,000 mls @ 75 mls/hr 09/09/19 19:30 09/10/19 08:47 Sodium Chloride IV 75 mls/hr .[id number] YEN Administration Levofloxacin/Dextrose 750 mg in 150 mls @ 100 mls/hr 09/10/19 21:00 Levaquin 750 Mg/150 Ml D5w IV 09/13/19 20:59 BEDTIME YEN Insulin Human Regular 0 unit 09/09/19 19:20 Humulin R SUBCUT PRN PRN Hyperglycemia Protocol Levothyroxine Sodium 25 mcg 09/10/19 06:30 09/10/19 05:58 Synthroid PO 25 mcg DAILY@0630 YEN Administration Meclizine HCl 25 mg 09/10/19 09:00 09/10/19 08:46 Antivert PO 25 mg DAILY YEN Administration Pantoprazole Sodium 40 mg 09/10/19 08:00 09/10/19 08:46 Protonix PO 40 mg BIDAC YEN Administration Propranolol HCl 40 mg 09/10/19 09:00 09/10/19 08:46 Inderal PO 40 mg DAILY YEN Administration Quetiapine Fumarate 600 mg 09/10/19 21:00 Seroquel PO BEDTIME YEN Ropinirole HCl 0.5 mg 09/10/19 09:00 09/10/19 08:46 Requip PO 0.5 mg DAILY YEN Administration Sertraline HCl 200 mg 09/10/19 21:00 Zoloft PO BEDTIME YEN Body Composition Height: 5 ft 3 in Weight: 99.337 kg Body Mass Index (BMI): 38.7 Vital Signs Temperature: 98.1 F Pulse Rate: 76 Respiratory Rate: 18 Blood Pressure: 132/74 O2 Sat by Pulse Oximetry: 97 Physical Examination Appearance: Reports Well-appearing and No pain distress Ill-appearing: None Pain Distress: None Eyes: Reports LU and EOMI ENT: Reports Nose normal Neck: Supple Respiratory: Reports Airway patent and Breath sounds equal Cardiovascular: Reports RRR GI/: Reports Soft and Nontender Musculoskeletal: Reports ROM intact Skin: Reports Warm and Dry Neurological: Reports Sensation intact, Motor intact, Cranial nerves intact, Alert, Oriented and Alert to verbal Psychiatric: Reports Affect appropriate Lab/Tests/Diagnostic Imaging Lab/Tests/Diagnostic Imaging: Lab Review 09/09/19 09/09/19 09/09/19 16:35 16:44 16:44 WBC 12.39 H RBC 4.58 Hgb 13.1 Hct 40.6 MCV 88.6 MCH 28.6 MCHC 32.3 RDW Coeff of [place] 12.9 Plt Count 198 Immature Gran % (Auto) 1.7 Neut % (Auto) 69.6 Lymph % (Auto) 16.0 Powell % (Auto) 11.5 H Eos % (Auto) 0.9 Baso % (Auto) 0.3 Neut # (Auto) 8.6 H Lymph # (Auto) 2.0 Powell # (Auto) 1.4 Eos # (Auto) 0.1 Baso # (Auto) 0.0 Immature Gran # (Auto) 0.2 Puncture Site O2 Saturation ABG pH ABG pCO2 ABG pO2 ABG HCO3 ABG Total CO2 ABG Base Excess Codey Test FiO2 % Sodium 139.6 Potassium 4.04 Chloride 99.5 Carbon Dioxide 29.9 Anion Gap 14.24 BUN 10.1 Creatinine 0.65 Estimated GFR (MDRD) 94.00 BUN/Creatinine Ratio 15.53 Glucose 118.6 H Lactic Acid Calcium 9.74 Total Bilirubin 0.29 AST 22.4 ALT 16.0 Alkaline Phosphatase 105.3 Total Protein 7.58 Albumin 4.25 Globulin 3.33 Albumin/Globulin Ratio 1.27 SARS-CoV-2 RNA (RT-PCR) 09/09/19 09/09/19 09/10/19 16:44 17:24 05:10 WBC 9.37 RBC 3.98 L Hgb 11.4 L Hct 35.5 L MCV 89.2 MCH 28.6 MCHC 32.1 RDW Coeff of [place] 13.0 Plt Count 177 Immature Gran % (Auto) 2.3 Neut % (Auto) 60.6 Lymph % (Auto) 23.2 Powell % (Auto) 12.2 H Eos % (Auto) 1.3 Baso % (Auto) 0.4 Neut # (Auto) 5.7 Lymph # (Auto) 2.2 Powell # (Auto) 1.1 Eos # (Auto) 0.1 Baso # (Auto) 0.0 Immature Gran # (Auto) 0.2 Puncture Site R radial O2 Saturation 92.0 L ABG pH 7.386 ABG pCO2 46.9 H ABG pO2 67.0 L ABG HCO3 28.2 H ABG Total CO2 30 H ABG Base Excess 3 H Codey Test Positive FiO2 % 21.0 Sodium Potassium Chloride Carbon Dioxide Anion Gap BUN Creatinine Estimated GFR (MDRD) BUN/Creatinine Ratio Glucose Lactic Acid 1.29 Calcium Total Bilirubin AST ALT Alkaline Phosphatase Total Protein Albumin Globulin Albumin/Globulin Ratio SARS-CoV-2 RNA (RT-PCR) 09/10/19 05:10 WBC RBC Hgb Hct MCV MCH MCHC RDW Coeff of [place] Plt Count Immature Gran % (Auto) Neut % (Auto) Lymph % (Auto) Powell % (Auto) Eos % (Auto) Baso % (Auto) Neut # (Auto) Lymph # (Auto) Powell # (Auto) Eos # (Auto) Baso # (Auto) Immature Gran # (Auto) Puncture Site O2 Saturation ABG pH ABG pCO2 ABG pO2 ABG HCO3 ABG Total CO2 ABG Base Excess Codey Test FiO2 % Sodium 140.5 Potassium 3.60 Chloride 101.4 Carbon Dioxide 31.7 H Anion Gap 11.00 BUN 9.6 Creatinine 0.67 Estimated GFR (MDRD) 91.00 BUN/Creatinine Ratio 14.32 Glucose 101.6 Lactic Acid Calcium 8.71 Total Bilirubin 0.29 AST 30.3 ALT 13.8 Alkaline Phosphatase 82.9 Total Protein 6.28 L Albumin 3.35 L Globulin 2.93 Albumin/Globulin Ratio 1.14 SARS-CoV-2 RNA (RT-PCR) Orders Category Date Time Status ADMIT PATIENT INPATIENT .TO MEDSURG (NON-MONITORED ADMISSION 09/09/19 20:25 Active BED) ABG DRAW REQUEST Stat CARDIO 09/09/19 17:24 Completed OXYGEN Routine CARDIO 09/09/19 19:21 Completed ACCUCHECK (MED/SURG, SCU) [BLOOD GLUCOSE MONITORING] CARE 09/10/19 07:13 Active 0630,1100,1700,2100 ACTIVITY .BR with BRP CARE 09/09/19 19:20 Active GIVE HS SNACK 2100 CARE 09/09/19 19:21 Active INTAKE & OUTPUT Q8HR CARE 09/09/19 19:20 Active NPO REMINDER: IMAGING ONCE CARE 09/10/19 09:54 Active VITAL SIGNS Q8HR CARE 09/09/19 19:20 Active ADA 1800 DOLORES. DIET DIETARY 09/09/19 Dinner Ordered HS SNACK DIETARY 09/09/19 Dinner Ordered ED APPLY O2 .ONCE EMERGENCY 09/09/19 17:23 Active ABG Stat LAB 09/09/19 17:24 Completed BLOOD CULTURE Stat LAB 09/09/19 17:00 Received CBC W/ AUTO DIFF DAILY@0600 LAB 09/10/19 05:10 Completed CBC W/ AUTO DIFF DAILY@0600 LAB 09/11/19 06:00 Ordered CBC W/ AUTO DIFF Stat LAB 09/09/19 16:44 Completed COMPREHENSIVE METABOLIC PANEL DAILY@0600 LAB 09/10/19 05:10 Completed COMPREHENSIVE METABOLIC PANEL DAILY@0600 LAB 09/11/19 06:00 Ordered COMPREHENSIVE METABOLIC PANEL Stat LAB 09/09/19 16:44 Completed COVID19, PCR IDPH Stat LAB 09/09/19 16:35 Completed LACTIC ACID Stat LAB 09/09/19 16:44 Completed Acetaminophen [Tylenol] MEDS 09/09/19 19:20 Active 650 mg PO Q4H PRN Aspirin [Aspirin EC] MEDS 09/09/19 21:39 Active 81 mg PO BEDTIME Aspirin [Aspirin EC] MEDS 09/10/19 21:00 Discontinued 81 mg PO BEDTIME Atorvastatin Calcium [Lipitor] MEDS 09/09/19 21:39 Active 20 mg PO BEDTIME Atorvastatin Calcium [Lipitor] MEDS 09/10/19 21:00 Discontinued 20 mg PO BEDTIME Benztropine Mesylate [Cogentin] MEDS 09/09/19 22:23 Active 0.5 mg PO DAILY PRN Benztropine Mesylate [Cogentin] MEDS 09/09/19 21:34 Discontinued 0.5 mg PO PRN PRN Clonazepam [Klonopin] MEDS 09/09/19 21:23 Active 1 mg PO TID PRN Dicyclomine HCl [Bentyl] MEDS 09/09/19 21:39 Active 10 mg PO TID Dicyclomine HCl [Bentyl] MEDS 09/10/19 09:00 Discontinued 10 mg PO TID Divalproex Sodium [Depakote] MEDS 09/09/19 22:30 Active 1,000 mg PO BEDTIME Divalproex Sodium [Depakote] MEDS 09/09/19 21:38 Discontinued 500 mg PO BID Divalproex Sodium [Depakote] MEDS 09/10/19 09:00 Discontinued 500 mg PO BID Insulin Regular, Human [Humulin R] MEDS 09/09/19 19:20 Active See Protocol SUBCUT PRN PRN Levofloxacin/D5w [Levaquin 750 mg/150 ml D5w] MEDS 09/10/19 21:00 Active 750 mg in 150 ml IV BEDTIME Levofloxacin/D5w [Levaquin 750 mg/150 ml D5w] MEDS 09/09/19 17:22 Discontinued 750 mg in 150 ml IV ONCE Levothyroxine Sodium [Synthroid] MEDS 09/10/19 06:30 Active 25 mcg PO DAILY@0630 Meclizine HCl [Antivert] MEDS 09/10/19 09:00 Active 25 mg PO DAILY Pantoprazole Sodium [Protonix] MEDS 09/09/19 21:00 Discontinued 40 mg PO BID Pantoprazole Sodium [Protonix] MEDS 09/10/19 08:00 Active 40 mg PO BIDAC Propranolol HCl [Inderal] MEDS 09/10/19 09:00 Active 40 mg PO DAILY Quetiapine Fumarate [Seroquel] MEDS 09/10/19 21:00 Active 600 mg PO BEDTIME Quetiapine Fumarate [Seroquel] MEDS 09/09/19 21:38 Discontinued 600 mg PO BID Quetiapine Fumarate [Seroquel] MEDS 09/10/19 09:00 Discontinued 600 mg PO BID Ropinirole HCl [Requip] MEDS 09/10/19 09:00 Active 0.5 mg PO DAILY Sertraline HCl [Zoloft] MEDS 09/10/19 21:00 Active 200 mg PO BEDTIME Sertraline HCl [Zoloft] MEDS 09/09/19 21:38 Discontinued 200 mg PO DAILY Sertraline HCl [Zoloft] MEDS 09/10/19 09:00 Discontinued 200 mg PO DAILY Sodium Chloride 0.9% [Sodium Chloride] 1,000 ml MEDS 09/09/19 19:30 Active IV 75 mls/hr Sodium Chloride 0.9% [Sodium Chloride] 1,000 ml MEDS 09/09/19 16:23 Discontinued IV BOLUS RESUSCITATION STATUS Routine OTHERS 09/09/19 19:20 Ordered CHEST, 1V AP ONLY Stat RADS 09/09/19 16:[address] CHEST W/CONTRAST Routine RADS 09/10/19 09:54 Ordered Medications Generic Name Dose Route Start Last Admin Trade Name Freq PRN Reason Stop Dose Admin Acetaminophen 650 mg 09/09/19 19:20 Tylenol PO Q4H PRN Mild Pain Aspirin 81 mg 09/09/19 21:39 09/09/19 21:59 Aspirin Ec PO 81 mg BEDTIME YEN Administration Atorvastatin Calcium 20 mg 09/09/19 21:39 09/09/19 21:59 Lipitor PO 20 mg BEDTIME YEN Administration Benztropine Mesylate 0.5 mg 09/09/19 22:23 Cogentin PO DAILY PRN Anxiety Clonazepam 1 mg 09/09/19 21:23 Klonopin PO TID PRN Anxiety Dicyclomine HCl 10 mg 09/09/19 21:39 09/10/19 08:45 Bentyl PO 10 mg TID YEN Administration Divalproex Sodium 1,000 mg 09/09/19 22:30 09/09/19 22:42 Depakote PO 1,000 mg BEDTIME YEN Administration Sodium Chloride 1,000 mls @ 75 mls/hr 09/09/19 19:30 09/10/19 08:47 Sodium Chloride IV 75 mls/hr .[id number] YEN Administration Levofloxacin/Dextrose 750 mg in 150 mls @ 100 mls/hr 09/10/19 21:00 Levaquin 750 Mg/150 Ml D5w IV 09/13/19 20:59 BEDTIME YEN Insulin Human Regular 0 unit 09/09/19 19:20 Humulin R SUBCUT PRN PRN Hyperglycemia Protocol Levothyroxine Sodium 25 mcg 09/10/19 06:30 09/10/19 05:58 Synthroid PO 25 mcg DAILY@0630 YEN Administration Meclizine HCl 25 mg 09/10/19 09:00 09/10/19 08:46 Antivert PO 25 mg DAILY YEN Administration Pantoprazole Sodium 40 mg 09/10/19 08:00 09/10/19 08:46 Protonix PO 40 mg BIDAC YEN Administration Propranolol HCl 40 mg 09/10/19 09:00 09/10/19 08:46 Inderal PO 40 mg DAILY YEN Administration Quetiapine Fumarate 600 mg 09/10/19 21:00 Seroquel PO BEDTIME YNE Ropinirole HCl 0.5 mg 09/10/19 09:00 09/10/19 08:46 Requip PO 0.5 mg DAILY YEN Administration Sertraline HCl 200 mg 09/10/19 21:00 Zoloft PO BEDTIME YEN Discontinued Medications Generic Name Dose Route Start Last Admin Trade Name Freq PRN Reason Stop Dose Admin Aspirin 81 mg 09/10/19 21:00 Aspirin Ec PO BEDTIME YEN Atorvastatin Calcium 20 mg 09/10/19 21:00 Lipitor PO BEDTIME YEN Benztropine Mesylate 0.5 mg 09/09/19 21:34 Cogentin PO PRN PRN Anxiety Dicyclomine HCl 10 mg 09/10/19 09:00 Bentyl PO TID YEN Divalproex Sodium 500 mg 09/10/19 09:00 Depakote PO BID YEN Divalproex Sodium 500 mg 09/09/19 21:38 09/10/19 09:43 Depakote PO Not Given BID YEN Sodium Chloride 1,000 mls @ 1,000 mls/hr 09/09/19 16:23 09/09/19 17:08 Sodium Chloride IV 09/09/19 17:22 1,000 mls/hr BOLUS STA Administration Levofloxacin/Dextrose 750 mg in 150 mls @ 100 mls/hr 09/09/19 17:22 09/09/19 17:38 Levaquin 750 Mg/150 Ml D5w IV 09/09/19 18:51 100 mls/hr ONCE STA Administration Pantoprazole Sodium 40 mg 09/09/19 21:00 09/09/19 21:59 Protonix PO 40 mg BID YEN Administration Quetiapine Fumarate 600 mg 09/10/19 09:00 Seroquel PO BID YEN Quetiapine Fumarate 600 mg 09/09/19 21:38 09/10/19 08:45 Seroquel PO 600 mg BID YEN Administration Sertraline HCl 200 mg 09/10/19 09:00 Zoloft PO DAILY YEN Sertraline HCl 200 mg 09/09/19 21:38 09/09/19 21:58 Zoloft PO 200 mg DAILY YEN Administration Plan Plan: pt chest x ray Radiology shows left side infiltrate, wbc 12.3, lactate normal range, pH 7.38/46/67, pt assessed as pneumonia with hypoxia, is started on supplemental oxygen, IV Levaquin and admitted as an inpatient awaiting results of covid testing. Care to Dr Casey at 19:00.
--- NOTE | 2019-09-10 10:16 | PCM ---
Chief Complaint Chief Complaint: Shortness of Breath History of Present Illness History of Present Illness: . Allergies Allergies Allergy/AdvReac Type Severity Reaction Status Date / Time latex AdvReac Mild Rash Verified 09/09/19 15:58 codeine phosphate AdvReac Verified 09/09/19 15:58 [From Tylenol-Codeine #3] [facility] Medical History Acid reflux Anxiety Asthma Bipolar 1 disorder Hyperlipidemia Tachycardia Thyroid disorder Vitamin D deficiency Surgical History History of musculoskeletal system surgery History of surgery Status post appendectomy Status post cholecystectomy Status post hysterectomy Family History SISTER Diabetes Cancer BROTHER Diabetes Social History Smoking and tobacco status: Former smoker Tobacco: How many years used: 30 Smoking status stop date: 04/22/94 Quit status: quit date established Second hand smoke exposure: No Alcohol intake: never Counseling given: No Counseling provided: none Substance use type: does not use Counseling given: No Counseling provided: none Charito/latter-day: NONE Special charito needs: No Agree to transfusion: Yes Adopted: No Caregiver/support person: No Foster care: No Household members: none Housing: apartment Marital status: D Lives independently: Yes Daycare: no daycare Number of children: 2 Number of grandchildren: 2 Highest education level completed: some college, no degree Financial difficulty paying for basics: not very hard service: No [facility]: No Current occupational status: disabled Current occupational exposures/hazards: No Pets and animals: Yes (dog) Leisure activites: reading and other History of recent travel: No Sexually active: No Do you think of yourself as: straight/heterosexual Current gender identity: female Seatbelt use: always Helmet use: No Drives intoxicated or rides with intoxicated charter and tour bus driver: No Current diet type/program: regular Well-balanced diet: about half the time Caffeine: Yes Eating out: 1-3 times/week Reads food labels: sometimes During the past year weight has: remained stable Water heater temperature set < 120 degrees: Yes Working smoke detector in home: Yes Fire extinguisher in home: Yes Carbon monoxide detector in home: No Firearms in home: No What type of physical activity do you participate in?: walking Physical activity functional status: independent ambulation How many days of moderate to strenuous exercise, like a brisk walk, did you do in the last 7 days: 1 Medications Medications: Medications Generic Name Dose Route Start Last Admin Trade Name Freq PRN Reason Stop Dose Admin Acetaminophen 650 mg 09/09/19 19:20 Tylenol PO Q4H PRN Mild Pain Aspirin 81 mg 09/09/19 21:39 09/09/19 21:59 Aspirin Ec PO 81 mg BEDTIME YNE Administration Atorvastatin Calcium 20 mg 09/09/19 21:39 09/09/19 21:59 Lipitor PO 20 mg BEDTIME YEN Administration Benztropine Mesylate 0.5 mg 09/09/19 22:23 Cogentin PO DAILY PRN Anxiety Clonazepam 1 mg 09/09/19 21:23 Klonopin PO TID PRN Anxiety Dicyclomine HCl 10 mg 09/09/19 21:39 09/10/19 08:45 Bentyl PO 10 mg TID YEN Administration Divalproex Sodium 1,000 mg 09/09/19 22:30 09/09/19 22:42 Depakote PO 1,000 mg BEDTIME YEN Administration Sodium Chloride 1,000 mls @ 75 mls/hr 09/09/19 19:30 09/10/19 08:47 Sodium Chloride IV 75 mls/hr .[id number] YEN Administration Levofloxacin/Dextrose 750 mg in 150 mls @ 100 mls/hr 09/10/19 21:00 Levaquin 750 Mg/150 Ml D5w IV 09/13/19 20:59 BEDTIME YEN Insulin Human Regular 0 unit 09/09/19 19:20 Humulin R SUBCUT PRN PRN Hyperglycemia Protocol Levothyroxine Sodium 25 mcg 09/10/19 06:30 09/10/19 05:58 Synthroid PO 25 mcg DAILY@0630 YEN Administration Meclizine HCl 25 mg 09/10/19 09:00 09/10/19 08:46 Antivert PO 25 mg DAILY YEN Administration Pantoprazole Sodium 40 mg 09/10/19 08:00 09/10/19 08:46 Protonix PO 40 mg BIDAC YEN Administration Propranolol HCl 40 mg 09/10/19 09:00 09/10/19 08:46 Inderal PO 40 mg DAILY YEN Administration Quetiapine Fumarate 600 mg 09/10/19 21:00 Seroquel PO BEDTIME YEN Ropinirole HCl 0.5 mg 09/10/19 09:00 09/10/19 08:46 Requip PO 0.5 mg DAILY YEN Administration Sertraline HCl 200 mg 09/10/19 21:00 Zoloft PO BEDTIME YEN Body Composition Height: 5 ft 3 in Weight: 219 lb Body Mass Index (BMI): 38.7 Vital Signs Temperature: 98.1 F Pulse Rate: 76 Respiratory Rate: 18 Blood Pressure: 132/74 O2 Sat by Pulse Oximetry: 97 Lab/Tests/Diagnostic Imaging Lab/Tests/Diagnostic Imaging: Lab Review 09/09/19 09/09/19 09/09/19 16:35 16:44 16:44 WBC 12.39 H RBC 4.58 Hgb 13.1 Hct 40.6 MCV 88.6 MCH 28.6 MCHC 32.3 RDW Coeff of [place] 12.9 Plt Count 198 Immature Gran % (Auto) 1.7 Neut % (Auto) 69.6 Lymph % (Auto) 16.0 Motley % (Auto) 11.5 H Eos % (Auto) 0.9 Baso % (Auto) 0.3 Neut # (Auto) 8.6 H Lymph # (Auto) 2.0 Motley # (Auto) 1.4 Eos # (Auto) 0.1 Baso # (Auto) 0.0 Immature Gran # (Auto) 0.2 Puncture Site O2 Saturation ABG pH ABG pCO2 ABG pO2 ABG HCO3 ABG Total CO2 ABG Base Excess Codey Test FiO2 % Sodium 139.6 Potassium 4.04 Chloride 99.5 Carbon Dioxide 29.9 Anion Gap 14.24 BUN 10.1 Creatinine 0.65 Estimated GFR (MDRD) 94.00 BUN/Creatinine Ratio 15.53 Glucose 118.6 H Lactic Acid Calcium 9.74 Total Bilirubin 0.29 AST 22.4 ALT 16.0 Alkaline Phosphatase 105.3 Total Protein 7.58 Albumin 4.25 Globulin 3.33 Albumin/Globulin Ratio 1.27 SARS-CoV-2 RNA (RT-PCR) 09/09/19 09/09/19 09/10/19 16:44 17:24 05:10 WBC 9.37 RBC 3.98 L Hgb 11.4 L Hct 35.5 L MCV 89.2 MCH 28.6 MCHC 32.1 RDW Coeff of [place] 13.0 Plt Count 177 Immature Gran % (Auto) 2.3 Neut % (Auto) 60.6 Lymph % (Auto) 23.2 Motley % (Auto) 12.2 H Eos % (Auto) 1.3 Baso % (Auto) 0.4 Neut # (Auto) 5.7 Lymph # (Auto) 2.2 Motley # (Auto) 1.1 Eos # (Auto) 0.1 Baso # (Auto) 0.0 Immature Gran # (Auto) 0.2 Puncture Site R radial O2 Saturation 92.0 L ABG pH 7.386 ABG pCO2 46.9 H ABG pO2 67.0 L ABG HCO3 28.2 H ABG Total CO2 30 H ABG Base Excess 3 H Codey Test Positive FiO2 % 21.0 Sodium Potassium Chloride Carbon Dioxide Anion Gap BUN Creatinine Estimated GFR (MDRD) BUN/Creatinine Ratio Glucose Lactic Acid 1.29 Calcium Total Bilirubin AST ALT Alkaline Phosphatase Total Protein Albumin Globulin Albumin/Globulin Ratio SARS-CoV-2 RNA (RT-PCR) 09/10/19 05:10 WBC RBC Hgb Hct MCV MCH MCHC RDW Coeff of [place] Plt Count Immature Gran % (Auto) Neut % (Auto) Lymph % (Auto) Motley % (Auto) Eos % (Auto) Baso % (Auto) Neut # (Auto) Lymph # (Auto) Motley # (Auto) Eos # (Auto) Baso # (Auto) Immature Gran # (Auto) Puncture Site O2 Saturation ABG pH ABG pCO2 ABG pO2 ABG HCO3 ABG Total CO2 ABG Base Excess Codey Test FiO2 % Sodium 140.5 Potassium 3.60 Chloride 101.4 Carbon Dioxide 31.7 H Anion Gap 11.00 BUN 9.6 Creatinine 0.67 Estimated GFR (MDRD) 91.00 BUN/Creatinine Ratio 14.32 Glucose 101.6 Lactic Acid Calcium 8.71 Total Bilirubin 0.29 AST 30.3 ALT 13.8 Alkaline Phosphatase 82.9 Total Protein 6.28 L Albumin 3.35 L Globulin 2.93 Albumin/Globulin Ratio 1.14 SARS-CoV-2 RNA (RT-PCR) Orders Category Date Time Status ADMIT PATIENT INPATIENT .TO [facility] (NON-MONITORED ADMISSION 09/09/19 20:25 Active BED) ABG DRAW REQUEST Stat CARDIO 09/09/19 17:24 Completed OXYGEN Routine CARDIO 09/09/19 19:21 Completed ACCUCHECK (MED/SURG, SCU) [BLOOD GLUCOSE MONITORING] CARE 09/10/19 07:13 Active 0630,1100,1700,2100 ACTIVITY .BR with BRP CARE 09/09/19 19:20 Active GIVE HS SNACK 2100 CARE 09/09/19 19:21 Active INTAKE & OUTPUT Q8HR CARE 09/09/19 19:20 Active NPO REMINDER: IMAGING ONCE CARE 09/10/19 09:54 Active NPO REMINDER: IMAGING ONCE CARE 09/10/19 10:10 Active VITAL SIGNS Q8HR CARE 09/09/19 19:20 Active ADA 1800 DOLORES. DIET DIETARY 09/09/19 Dinner Ordered HS SNACK DIETARY 09/09/19 Dinner Ordered ED APPLY O2 .ONCE EMERGENCY 09/09/19 17:23 Active ABG Stat LAB 09/09/19 17:24 Completed BLOOD CULTURE Stat LAB 09/09/19 17:00 Received CBC W/ AUTO DIFF DAILY@0600 LAB 09/10/19 05:10 Completed CBC W/ AUTO DIFF DAILY@0600 LAB 09/11/19 06:00 Ordered CBC W/ AUTO DIFF Stat LAB 09/09/19 16:44 Completed COMPREHENSIVE METABOLIC PANEL DAILY@0600 LAB 09/10/19 05:10 Completed COMPREHENSIVE METABOLIC PANEL DAILY@0600 LAB 09/11/19 06:00 Ordered COMPREHENSIVE METABOLIC PANEL Stat LAB 09/09/19 16:44 Completed COVID19, PCR IDPH Stat LAB 09/09/19 16:35 Completed LACTIC ACID Stat LAB 09/09/19 16:44 Completed Acetaminophen [Tylenol] MEDS 09/09/19 19:20 Active 650 mg PO Q4H PRN Aspirin [Aspirin EC] MEDS 09/09/19 21:39 Active 81 mg PO BEDTIME Aspirin [Aspirin EC] MEDS 09/10/19 21:00 Discontinued 81 mg PO BEDTIME Atorvastatin Calcium [Lipitor] MEDS 09/09/19 21:39 Active 20 mg PO BEDTIME Atorvastatin Calcium [Lipitor] MEDS 09/10/19 21:00 Discontinued 20 mg PO BEDTIME Benztropine Mesylate [Cogentin] MEDS 09/09/19 22:23 Active 0.5 mg PO DAILY PRN Benztropine Mesylate [Cogentin] MEDS 09/09/19 21:34 Discontinued 0.5 mg PO PRN PRN Clonazepam [Klonopin] MEDS 09/09/19 21:23 Active 1 mg PO TID PRN Dicyclomine HCl [Bentyl] MEDS 09/09/19 21:39 Active 10 mg PO TID Dicyclomine HCl [Bentyl] MEDS 09/10/19 09:00 Discontinued 10 mg PO TID Divalproex Sodium [Depakote] MEDS 09/09/19 22:30 Active 1,000 mg PO BEDTIME Divalproex Sodium [Depakote] MEDS 09/09/19 21:38 Discontinued 500 mg PO BID Divalproex Sodium [Depakote] MEDS 09/10/19 09:00 Discontinued 500 mg PO BID Insulin Regular, Human [Humulin R] MEDS 09/09/19 19:20 Active See Protocol SUBCUT PRN PRN Levofloxacin/D5w [Levaquin 750 mg/150 ml D5w] MEDS 09/10/19 21:00 Active 750 mg in 150 ml IV BEDTIME Levofloxacin/D5w [Levaquin 750 mg/150 ml D5w] MEDS 09/09/19 17:22 Discontinued 750 mg in 150 ml IV ONCE Levothyroxine Sodium [Synthroid] MEDS 09/10/19 06:30 Active 25 mcg PO DAILY@0630 Meclizine HCl [Antivert] MEDS 09/10/19 09:00 Active 25 mg PO DAILY Pantoprazole Sodium [Protonix] MEDS 09/09/19 21:00 Discontinued 40 mg PO BID Pantoprazole Sodium [Protonix] MEDS 09/10/19 08:00 Active 40 mg PO BIDAC Propranolol HCl [Inderal] MEDS 09/10/19 09:00 Active 40 mg PO DAILY Quetiapine Fumarate [Seroquel] MEDS 09/10/19 21:00 Active 600 mg PO BEDTIME Quetiapine Fumarate [Seroquel] MEDS 09/09/19 21:38 Discontinued 600 mg PO BID Quetiapine Fumarate [Seroquel] MEDS 09/10/19 09:00 Discontinued 600 mg PO BID Ropinirole HCl [Requip] MEDS 09/10/19 09:00 Active 0.5 mg PO DAILY Sertraline HCl [Zoloft] MEDS 09/10/19 21:00 Active 200 mg PO BEDTIME Sertraline HCl [Zoloft] MEDS 09/09/19 21:38 Discontinued 200 mg PO DAILY Sertraline HCl [Zoloft] MEDS 09/10/19 09:00 Discontinued 200 mg PO DAILY Sodium Chloride 0.9% [Sodium Chloride] 1,000 ml MEDS 09/09/19 19:30 Active IV 75 mls/hr Sodium Chloride 0.9% [Sodium Chloride] 1,000 ml MEDS 09/09/19 16:23 Discontinued IV BOLUS RESUSCITATION STATUS Routine OTHERS 09/09/19 19:20 Ordered CHEST, 1V AP ONLY Stat RADS 09/09/19 16:[address] CHEST W/WO CONTRAST Routine RADS 09/10/19 10:10 Ordered Medications Generic Name Dose Route Start Last Admin Trade Name Freq PRN Reason Stop Dose Admin Acetaminophen 650 mg 09/09/19 19:20 Tylenol PO Q4H PRN Mild Pain Aspirin 81 mg 09/09/19 21:39 09/09/19 21:59 Aspirin Ec PO 81 mg BEDTIME YEN Administration Atorvastatin Calcium 20 mg 09/09/19 21:39 09/09/19 21:59 Lipitor PO 20 mg BEDTIME YEN Administration Benztropine Mesylate 0.5 mg 09/09/19 22:23 Cogentin PO DAILY PRN Anxiety Clonazepam 1 mg 09/09/19 21:23 Klonopin PO TID PRN Anxiety Dicyclomine HCl 10 mg 09/09/19 21:39 09/10/19 08:45 Bentyl PO 10 mg TID YEN Administration Divalproex Sodium 1,000 mg 09/09/19 22:30 09/09/19 22:42 Depakote PO 1,000 mg BEDTIME YEN Administration Sodium Chloride 1,000 mls @ 75 mls/hr 09/09/19 19:30 09/10/19 08:47 Sodium Chloride IV 75 mls/hr .[id number] YEN Administration Levofloxacin/Dextrose 750 mg in 150 mls @ 100 mls/hr 09/10/19 21:00 Levaquin 750 Mg/150 Ml D5w IV 09/13/19 20:59 BEDTIME YEN Insulin Human Regular 0 unit 09/09/19 19:20 Humulin R SUBCUT PRN PRN Hyperglycemia Protocol Levothyroxine Sodium 25 mcg 09/10/19 06:30 09/10/19 05:58 Synthroid PO 25 mcg DAILY@0630 YEN Administration Meclizine HCl 25 mg 09/10/19 09:00 09/10/19 08:46 Antivert PO 25 mg DAILY YEN Administration Pantoprazole Sodium 40 mg 09/10/19 08:00 09/10/19 08:46 Protonix PO 40 mg BIDAC YEN Administration Propranolol HCl 40 mg 09/10/19 09:00 09/10/19 08:46 Inderal PO 40 mg DAILY YEN Administration Quetiapine Fumarate 600 mg 09/10/19 21:00 Seroquel PO BEDTIME YEN Ropinirole HCl 0.5 mg 09/10/19 09:00 09/10/19 08:46 Requip PO 0.5 mg DAILY YEN Administration Sertraline HCl 200 mg 09/10/19 21:00 Zoloft PO BEDTIME YEN Discontinued Medications Generic Name Dose Route Start Last Admin Trade Name Freq PRN Reason Stop Dose Admin Aspirin 81 mg 09/10/19 21:00 Aspirin Ec PO BEDTIME [facility] Atorvastatin Calcium 20 mg 09/10/19 21:00 Lipitor PO BEDTIME [facility] Benztropine Mesylate 0.5 mg 09/09/19 21:34 Cogentin PO PRN PRN Anxiety Dicyclomine HCl 10 mg 09/10/19 09:00 Bentyl PO TID [facility] Divalproex Sodium 500 mg 09/10/19 09:00 Depakote PO BID [facility] Divalproex Sodium 500 mg 09/09/19 21:38 09/10/19 09:43 Depakote PO Not Given BID [facility] Sodium Chloride 1,000 mls @ 1,000 mls/hr 09/09/19 16:23 09/09/19 17:08 Sodium Chloride IV 09/09/19 17:22 1,000 mls/hr BOLUS STA Administration Levofloxacin/Dextrose 750 mg in 150 mls @ 100 mls/hr 09/09/19 17:22 09/09/19 17:38 Levaquin 750 Mg/150 Ml D5w IV 09/09/19 18:51 100 mls/hr ONCE STA Administration Pantoprazole Sodium 40 mg 09/09/19 21:00 09/09/19 21:59 Protonix PO 40 mg BID YEN Administration Quetiapine Fumarate 600 mg 09/10/19 09:00 Seroquel PO BID YEN Quetiapine Fumarate 600 mg 09/09/19 21:38 09/10/19 08:45 Seroquel PO 600 mg BID EYN Administration Sertraline HCl 200 mg 09/10/19 09:00 Zoloft PO DAILY YEN Sertraline HCl 200 mg 09/09/19 21:38 09/09/19 21:58 Zoloft PO 200 mg DAILY YEN Administration
--- NOTE | 2019-09-10 10:24 | PCM ---
Chief Complaint Chief Complaint: Cough and congestion . History of Present Illness History of Present Illness: Patient states has had a mild cough off and on for 3 days. States has had a intermittent fever as well and has experienced diffuse body aches. Denies ya, or injury, . Has a hx of left foot surgery 5 weeks ago and developed infection currently tx with antibiotic. Has a long standing hx diabetes mellitus Admitting chest xray revealed patchy density LLL........................." Patchy consolidation seen in the left mid to lower lung zone with general interstitial prominence throughout the affected lung as well consitsent with Lt Lower Lung Pneumonia" Review of Systems Constitutional: Reports fever and fatigue Eyes: Denies blurred vision, double-vision, discharge, itching, pain, redness, photophobia and other Ears: Denies pain, bleeding, drainage, ringing, hearing loss and other Nose: Denies bleeding, congestion, discharge and other Throat: Denies pain, swelling, voice change and other Mouth: Denies bleeding, pain, swelling and other Respiratory: Reports cough, shortness of air and wheeze; Denies hemoptysis and pain with breathing Cardiovascular: Denies chest pain, left arm pain, diaphoresis, PND, orthopnea, edema, palpitations, syncope and other Gastrointestinal: Denies abdominal pain, nausea, vomiting, diarrhea, melena, hematemesis, hematochezia, dysphagia, constipation and other Genitourinary: Denies dysuria, hematuria, frequency, incontinence, flank pain, vaginal discharge, abnormal bleeding, pelvic pain and other Last Menstrual Cycle: N/A Neurological: Denies headache, dizziness, seizure, numbness, weakness, speech difficulty, problems with walking, tremor, fainting and other Musculoskeletal: Reports pain and swelling in joints (Lt Foot site of surgery) Skin: Denies rash, pruritus, lacerations, wounds, bruising and other Immunology: Denies hives, itching, frequent infections, difficulty healing and other Hematology: Denies easy bruising, easy bleeding, swollen glands and other Endocrine: Denies weight changes and polyuria Psychiatric: Denies depression, anxiety, sleeplessness, hopelessness, suicidal, hallucinations and other Habits: Reports tobacco use, substance use, alcohol use and other Allergies Allergies Allergy/AdvReac Type Severity Reaction Status Date / Time latex AdvReac Mild Rash Verified 09/09/19 15:58 codeine phosphate AdvReac Verified 09/09/19 15:58 [From Tylenol-Codeine #3] [facility] Medical History Acid reflux Anxiety Asthma Bipolar 1 disorder Hyperlipidemia Tachycardia Thyroid disorder Vitamin D deficiency Surgical History History of musculoskeletal system surgery History of surgery Status post appendectomy Status post cholecystectomy Status post hysterectomy Family History SISTER Diabetes Cancer BROTHER Diabetes Social History Smoking and tobacco status: Former smoker Tobacco: How many years used: 30 Smoking status stop date: 04/22/94 Quit status: quit date established Second hand smoke exposure: No Alcohol intake: never Counseling given: No Counseling provided: none Substance use type: does not use Counseling given: No Counseling provided: none Charito/sikhism: NONE Special charito needs: No Agree to transfusion: Yes Adopted: No Caregiver/support person: No Foster care: No Household members: none Housing: apartment Marital status: D Lives independently: Yes Daycare: no daycare Number of children: 2 Number of grandchildren: 2 Highest education level completed: some college, no degree Financial difficulty paying for basics: not very hard service: No FCI: No Current occupational status: disabled Current occupational exposures/hazards: No Pets and animals: Yes (dog) Leisure activites: reading and other History of recent travel: No Sexually active: No Do you think of yourself as: straight/heterosexual Current gender identity: female Seatbelt use: always Helmet use: No Drives intoxicated or rides with intoxicated class b truck driver: No Current diet type/program: regular Well-balanced diet: about half the time Caffeine: Yes Eating out: 1-3 times/week Reads food labels: sometimes During the past year weight has: remained stable Water heater temperature set < 120 degrees: Yes Working smoke detector in home: Yes Fire extinguisher in home: Yes Carbon monoxide detector in home: No Firearms in home: No What type of physical activity do you participate in?: walking Physical activity functional status: independent ambulation How many days of moderate to strenuous exercise, like a brisk walk, did you do in the last 7 days: 1 Medications Medications: Medications Generic Name Dose Route Start Last Admin Trade Name Freq PRN Reason Stop Dose Admin Acetaminophen 650 mg 09/09/19 19:20 Tylenol PO Q4H PRN Mild Pain Aspirin 81 mg 09/09/19 21:39 09/09/19 21:59 Aspirin Ec PO 81 mg BEDTIME YEN Administration Atorvastatin Calcium 20 mg 09/09/19 21:39 09/09/19 21:59 Lipitor PO 20 mg BEDTIME YEN Administration Benztropine Mesylate 0.5 mg 09/09/19 22:23 Cogentin PO DAILY PRN Anxiety Clonazepam 1 mg 09/09/19 21:23 Klonopin PO TID PRN Anxiety Dicyclomine HCl 10 mg 09/09/19 21:39 09/10/19 08:45 Bentyl PO 10 mg TID YEN Administration Divalproex Sodium 1,000 mg 09/09/19 22:30 09/09/19 22:42 Depakote PO 1,000 mg BEDTIME YEN Administration Sodium Chloride 1,000 mls @ 75 mls/hr 09/09/19 19:30 09/10/19 08:47 Sodium Chloride IV 75 mls/hr .[id number] YEN Administration Levofloxacin/Dextrose 750 mg in 150 mls @ 100 mls/hr 09/10/19 21:00 Levaquin 750 Mg/150 Ml D5w IV 09/13/19 20:59 BEDTIME YEN Insulin Human Regular 0 unit 09/09/19 19:20 Humulin R SUBCUT PRN PRN Hyperglycemia Protocol Levothyroxine Sodium 25 mcg 09/10/19 06:30 09/10/19 05:58 Synthroid PO 25 mcg DAILY@0630 YEN Administration Meclizine HCl 25 mg 09/10/19 09:00 09/10/19 08:46 Antivert PO 25 mg DAILY YEN Administration Pantoprazole Sodium 40 mg 09/10/19 08:00 09/10/19 08:46 Protonix PO 40 mg BIDAC YEN Administration Propranolol HCl 40 mg 09/10/19 09:00 09/10/19 08:46 Inderal PO 40 mg DAILY YEN Administration Quetiapine Fumarate 600 mg 09/10/19 21:00 Seroquel PO BEDTIME YEN Ropinirole HCl 0.5 mg 09/10/19 09:00 09/10/19 08:46 Requip PO 0.5 mg DAILY YEN Administration Sertraline HCl 200 mg 09/10/19 21:00 Zoloft PO BEDTIME YEN Body Composition Height: 5 ft 3 in Weight: 219 lb Body Mass Index (BMI): 38.7 Vital Signs Temperature: 98.1 F Pulse Rate: 76 Respiratory Rate: 18 Blood Pressure: 132/74 O2 Sat by Pulse Oximetry: 97 Physical Examination Appearance: Reports Well-appearing, No pain distress, Well-nourished and Obese Ill-appearing: None Pain Distress: None Eyes: Reports LU, EOMI and Conjunctiva clear ENT: Reports Ears normal Neck: Supple Respiratory: Reports Airway patent and Respirations nonlabored Cardiovascular: Reports RRR GI/: Reports Soft and Nontender Musculoskeletal: Reports Normal strength, ROM intact and No edema Skin: Reports Warm, Dry and Normal color Neurological: Reports Sensation intact, Motor intact, Cranial nerves intact, Alert and Oriented Psychiatric: Reports Affect appropriate and Mood appropriate; Denies Anxious and Depressed Lab/Tests/Diagnostic Imaging Lab/Tests/Diagnostic Imaging: Lab Review 09/09/19 09/09/19 09/09/19 16:35 16:44 16:44 WBC 12.39 H RBC 4.58 Hgb 13.1 Hct 40.6 MCV 88.6 MCH 28.6 MCHC 32.3 RDW Coeff of [place] 12.9 Plt Count 198 Immature Gran % (Auto) 1.7 Neut % (Auto) 69.6 Lymph % (Auto) 16.0 [place] % (Auto) 11.5 H Eos % (Auto) 0.9 Baso % (Auto) 0.3 Neut # (Auto) 8.6 H Lymph # (Auto) 2.0 [place] # (Auto) 1.4 Eos # (Auto) 0.1 Baso # (Auto) 0.0 Immature Gran # (Auto) 0.2 Puncture Site O2 Saturation ABG pH ABG pCO2 ABG pO2 ABG HCO3 ABG Total CO2 ABG Base Excess Codey Test FiO2 % Sodium 139.6 Potassium 4.04 Chloride 99.5 Carbon Dioxide 29.9 Anion Gap 14.24 BUN 10.1 Creatinine 0.65 Estimated GFR (MDRD) 94.00 BUN/Creatinine Ratio 15.53 Glucose 118.6 H Lactic Acid Calcium 9.74 Total Bilirubin 0.29 AST 22.4 ALT 16.0 Alkaline Phosphatase 105.3 Total Protein 7.58 Albumin 4.25 Globulin 3.33 Albumin/Globulin Ratio 1.27 SARS-CoV-2 RNA (RT-PCR) 09/09/19 09/09/19 09/10/19 16:44 17:24 05:10 WBC 9.37 RBC 3.98 L Hgb 11.4 L Hct 35.5 L MCV 89.2 MCH 28.6 MCHC 32.1 RDW Coeff of [place] 13.0 Plt Count 177 Immature Gran % (Auto) 2.3 Neut % (Auto) 60.6 Lymph % (Auto) 23.2 [place] % (Auto) 12.2 H Eos % (Auto) 1.3 Baso % (Auto) 0.4 Neut # (Auto) 5.7 Lymph # (Auto) 2.2 [place] # (Auto) 1.1 Eos # (Auto) 0.1 Baso # (Auto) 0.0 Immature Gran # (Auto) 0.2 Puncture Site R radial O2 Saturation 92.0 L ABG pH 7.386 ABG pCO2 46.9 H ABG pO2 67.0 L ABG HCO3 28.2 H ABG Total CO2 30 H ABG Base Excess 3 H Codey Test Positive FiO2 % 21.0 Sodium Potassium Chloride Carbon Dioxide Anion Gap BUN Creatinine Estimated GFR (MDRD) BUN/Creatinine Ratio Glucose Lactic Acid 1.29 Calcium Total Bilirubin AST ALT Alkaline Phosphatase Total Protein Albumin Globulin Albumin/Globulin Ratio SARS-CoV-2 RNA (RT-PCR) 09/10/19 05:10 WBC RBC Hgb Hct MCV MCH MCHC RDW Coeff of [place] Plt Count Immature Gran % (Auto) Neut % (Auto) Lymph % (Auto) [place] % (Auto) Eos % (Auto) Baso % (Auto) Neut # (Auto) Lymph # (Auto) [place] # (Auto) Eos # (Auto) Baso # (Auto) Immature Gran # (Auto) Puncture Site O2 Saturation ABG pH ABG pCO2 ABG pO2 ABG HCO3 ABG Total CO2 ABG Base Excess Codey Test FiO2 % Sodium 140.5 Potassium 3.60 Chloride 101.4 Carbon Dioxide 31.7 H Anion Gap 11.00 BUN 9.6 Creatinine 0.67 Estimated GFR (MDRD) 91.00 BUN/Creatinine Ratio 14.32 Glucose 101.6 Lactic Acid Calcium 8.71 Total Bilirubin 0.29 AST 30.3 ALT 13.8 Alkaline Phosphatase 82.9 Total Protein 6.28 L Albumin 3.35 L Globulin 2.93 Albumin/Globulin Ratio 1.14 SARS-CoV-2 RNA (RT-PCR) Orders Category Date Time Status ADMIT PATIENT INPATIENT .TO MEDSURG (NON-MONITORED ADMISSION 09/09/19 20:25 Active BED) ABG DRAW REQUEST Stat CARDIO 09/09/19 17:24 Completed OXYGEN Routine CARDIO 09/09/19 19:21 Completed ACCUCHECK (MED/SURG, SCU) [BLOOD GLUCOSE MONITORING] CARE 09/10/19 07:13 Active 0630,1100,1700,2100 ACTIVITY .BR with BRP CARE 09/09/19 19:20 Active GIVE HS SNACK 2100 CARE 09/09/19 19:21 Active INTAKE & OUTPUT Q8HR CARE 09/09/19 19:20 Active NPO REMINDER: IMAGING ONCE CARE 09/10/19 09:54 Active NPO REMINDER: IMAGING ONCE CARE 09/10/19 10:10 Active VITAL SIGNS Q8HR CARE 09/09/19 19:20 Active ADA 1800 DOLORES. DIET DIETARY 09/09/19 Dinner Ordered HS SNACK DIETARY 09/09/19 Dinner Ordered ED APPLY O2 .ONCE EMERGENCY 09/09/19 17:23 Active ABG Stat LAB 09/09/19 17:24 Completed BLOOD CULTURE Stat LAB 09/09/19 17:00 Received CBC W/ AUTO DIFF DAILY@0600 LAB 09/10/19 05:10 Completed CBC W/ AUTO DIFF DAILY@0600 LAB 09/11/19 06:00 Ordered CBC W/ AUTO DIFF Stat LAB 09/09/19 16:44 Completed COMPREHENSIVE METABOLIC PANEL DAILY@0600 LAB 09/10/19 05:10 Completed COMPREHENSIVE METABOLIC PANEL DAILY@0600 LAB 09/11/19 06:00 Ordered COMPREHENSIVE METABOLIC PANEL Stat LAB 09/09/19 16:44 Completed COVID19, PCR IDPH Stat LAB 09/09/19 16:35 Completed LACTIC ACID Stat LAB 09/09/19 16:44 Completed Acetaminophen [Tylenol] MEDS 09/09/19 19:20 Active 650 mg PO Q4H PRN Aspirin [Aspirin EC] MEDS 09/09/19 21:39 Active 81 mg PO BEDTIME Aspirin [Aspirin EC] MEDS 09/10/19 21:00 Discontinued 81 mg PO BEDTIME Atorvastatin Calcium [Lipitor] MEDS 09/09/19 21:39 Active 20 mg PO BEDTIME Atorvastatin Calcium [Lipitor] MEDS 09/10/19 21:00 Discontinued 20 mg PO BEDTIME Benztropine Mesylate [Cogentin] MEDS 09/09/19 22:23 Active 0.5 mg PO DAILY PRN Benztropine Mesylate [Cogentin] MEDS 09/09/19 21:34 Discontinued 0.5 mg PO PRN PRN Clonazepam [Klonopin] MEDS 09/09/19 21:23 Active 1 mg PO TID PRN Dicyclomine HCl [Bentyl] MEDS 09/09/19 21:39 Active 10 mg PO TID Dicyclomine HCl [Bentyl] MEDS 09/10/19 09:00 Discontinued 10 mg PO TID Divalproex Sodium [Depakote] MEDS 09/09/19 22:30 Active 1,000 mg PO BEDTIME Divalproex Sodium [Depakote] MEDS 09/09/19 21:38 Discontinued 500 mg PO BID Divalproex Sodium [Depakote] MEDS 09/10/19 09:00 Discontinued 500 mg PO BID Insulin Regular, Human [Humulin R] MEDS 09/09/19 19:20 Active See Protocol SUBCUT PRN PRN Levofloxacin/D5w [Levaquin 750 mg/150 ml D5w] MEDS 09/10/19 21:00 Active 750 mg in 150 ml IV BEDTIME Levofloxacin/D5w [Levaquin 750 mg/150 ml D5w] MEDS 09/09/19 17:22 Discontinued 750 mg in 150 ml IV ONCE Levothyroxine Sodium [Synthroid] MEDS 09/10/19 06:30 Active 25 mcg PO DAILY@0630 Meclizine HCl [Antivert] MEDS 09/10/19 09:00 Active 25 mg PO DAILY Pantoprazole Sodium [Protonix] MEDS 09/09/19 21:00 Discontinued 40 mg PO BID Pantoprazole Sodium [Protonix] MEDS 09/10/19 08:00 Active 40 mg PO BIDAC Propranolol HCl [Inderal] MEDS 09/10/19 09:00 Active 40 mg PO DAILY Quetiapine Fumarate [Seroquel] MEDS 09/10/19 21:00 Active 600 mg PO BEDTIME Quetiapine Fumarate [Seroquel] MEDS 09/09/19 21:38 Discontinued 600 mg PO BID Quetiapine Fumarate [Seroquel] MEDS 09/10/19 09:00 Discontinued 600 mg PO BID Ropinirole HCl [Requip] MEDS 09/10/19 09:00 Active 0.5 mg PO DAILY Sertraline HCl [Zoloft] MEDS 09/10/19 21:00 Active 200 mg PO BEDTIME Sertraline HCl [Zoloft] MEDS 09/09/19 21:38 Discontinued 200 mg PO DAILY Sertraline HCl [Zoloft] MEDS 09/10/19 09:00 Discontinued 200 mg PO DAILY Sodium Chloride 0.9% [Sodium Chloride] 1,000 ml MEDS 09/09/19 19:30 Active IV 75 mls/hr Sodium Chloride 0.9% [Sodium Chloride] 1,000 ml MEDS 09/09/19 16:23 Discontinued IV BOLUS RESUSCITATION STATUS Routine OTHERS 09/09/19 19:20 Ordered CHEST, 1V AP ONLY Stat RADS 09/09/19 16:[address] CHEST W/WO CONTRAST Routine RADS 09/10/19 10:10 Ordered Medications Generic Name Dose Route Start Last Admin Trade Name Freq PRN Reason Stop Dose Admin Acetaminophen 650 mg 09/09/19 19:20 Tylenol PO Q4H PRN Mild Pain Aspirin 81 mg 09/09/19 21:39 09/09/19 21:59 Aspirin Ec PO 81 mg BEDTIME YEN Administration Atorvastatin Calcium 20 mg 09/09/19 21:39 09/09/19 21:59 Lipitor PO 20 mg BEDTIME YEN Administration Benztropine Mesylate 0.5 mg 09/09/19 22:23 Cogentin PO DAILY PRN Anxiety Clonazepam 1 mg 09/09/19 21:23 Klonopin PO TID PRN Anxiety Dicyclomine HCl 10 mg 09/09/19 21:39 09/10/19 08:45 Bentyl PO 10 mg TID YEN Administration Divalproex Sodium 1,000 mg 09/09/19 22:30 09/09/19 22:42 Depakote PO 1,000 mg BEDTIME YEN Administration Sodium Chloride 1,000 mls @ 75 mls/hr 09/09/19 19:30 09/10/19 08:47 Sodium Chloride IV 75 mls/hr .[id number] YEN Administration Levofloxacin/Dextrose 750 mg in 150 mls @ 100 mls/hr 09/10/19 21:00 Levaquin 750 Mg/150 Ml D5w IV 09/13/19 20:59 BEDTIME YEN Insulin Human Regular 0 unit 09/09/19 19:20 Humulin R SUBCUT PRN PRN Hyperglycemia Protocol Levothyroxine Sodium 25 mcg 09/10/19 06:30 09/10/19 05:58 Synthroid PO 25 mcg DAILY@0630 YEN Administration Meclizine HCl 25 mg 09/10/19 09:00 09/10/19 08:46 Antivert PO 25 mg DAILY YEN Administration Pantoprazole Sodium 40 mg 09/10/19 08:00 09/10/19 08:46 Protonix PO 40 mg BIDAC YEN Administration Propranolol HCl 40 mg 09/10/19 09:00 09/10/19 08:46 Inderal PO 40 mg DAILY YEN Administration Quetiapine Fumarate 600 mg 09/10/19 21:00 Seroquel PO BEDTIME YEN Ropinirole HCl 0.5 mg 09/10/19 09:00 09/10/19 08:46 Requip PO 0.5 mg DAILY YEN Administration Sertraline HCl 200 mg 09/10/19 21:00 Zoloft PO BEDTIME YEN Discontinued Medications Generic Name Dose Route Start Last Admin Trade Name Freq PRN Reason Stop Dose Admin Aspirin 81 mg 09/10/19 21:00 Aspirin Ec PO BEDTIME YEN Atorvastatin Calcium 20 mg 09/10/19 21:00 Lipitor PO BEDTIME YEN Benztropine Mesylate 0.5 mg 09/09/19 21:34 Cogentin PO PRN PRN Anxiety Dicyclomine HCl 10 mg 09/10/19 09:00 Bentyl PO TID YEN Divalproex Sodium 500 mg 09/10/19 09:00 Depakote PO BID YEN Divalproex Sodium 500 mg 09/09/19 21:38 09/10/19 09:43 Depakote PO Not Given BID YEN Sodium Chloride 1,000 mls @ 1,000 mls/hr 09/09/19 16:23 09/09/19 17:08 Sodium Chloride IV 09/09/19 17:22 1,000 mls/hr BOLUS STA Administration Levofloxacin/Dextrose 750 mg in 150 mls @ 100 mls/hr 09/09/19 17:22 09/09/19 17:38 Levaquin 750 Mg/150 Ml D5w IV 09/09/19 18:51 100 mls/hr ONCE STA Administration Pantoprazole Sodium 40 mg 09/09/19 21:00 09/09/19 21:59 Protonix PO 40 mg BID YEN Administration Quetiapine Fumarate 600 mg 09/10/19 09:00 Seroquel PO BID YEN Quetiapine Fumarate 600 mg 09/09/19 21:38 09/10/19 08:45 Seroquel PO 600 mg BID YEN Administration Sertraline HCl 200 mg 09/10/19 09:00 Zoloft PO DAILY YEN Sertraline HCl 200 mg 09/09/19 21:38 09/09/19 21:58 Zoloft PO 200 mg DAILY YEN Administration Plan Plan: Impression: 1) LLL PNEUMONIA 2)PUI for Covid 3)Diabetes Type II 4)Hyperlipidemia 5)Hypothyroidism 6)Bipolar Depression P) Currently awaiting results of COVID testing. Obtain CT chest for further evaluation of Pneumonia Continue current therapy
--- NOTE | 2019-09-10 14:33 | CT ---
EXAM: CT chest with and without contrast HISTORY: Pneumonia COMPARISON: CT chest 06/29/2017 and numerous priors TECHNIQUE: Serial axial images of the chest were obtained after and before 75 ml of Omnipaque IV con trast was administered. These were obtained from the lung apices to the upper abdomen. FINDINGS: The thyroid is normal. Visualized vessels are unremarkable. There is no dissection, aneu rysm or stenosis. The heart is normal in size without pericardial effusion. There is an AP window l ymph node measuring 0.8 cm on image 18. There is no pneumothorax or pleural effusion. There is patchy nodular ground-glass consolidation in the left upper lobe and in the lingula. There is mild bibasilar atelectasis. The airways are patent . Soft tissues in the upper abdomen demonstrate prior cholecystectomy. The osseous structures are unr emarkable. IMPRESSION: 1. Patchy ground-glass and consolidations throughout the left upper lobe and lingula suggestive of p neumonia. 2. Borderline enlarged lymph nodes are likely reactive.
[2019-09-10] MEDS: ZOLOFT PO SCH ×2 (19:55→20:47)
[2019-09-10] MEDS: ASPIRIN EC PO SCH ×2 (19:56→20:45)
[2019-09-10] MEDS: LIPITOR PO SCH ×2 (19:56→20:47)
[2019-09-10] MEDS: LEVAQUIN 750 MG/150 ML D5W 750 MG/150 ML BAG IV SCH ×2 (19:57→20:47)
[2019-09-10] MEDS ORDERED: LIPITOR PO SCH (21:00)
[2019-09-10] MEDS ORDERED: ASPIRIN EC PO SCH (21:00)
[2019-09-10] MEDS ORDERED: DIFLUCAN PO STA (21:23)
[2019-09-10] MEDS: NYSTATIN ORAL SUSP PO SCH (21:45)
[2019-09-11] MEDS: SODIUM CHLORIDE 1,000 ML IV SCH (04:38)
[2019-09-11 05:30] LABS: HEMATOCRIT 36.3 % (37.0-47.0)
[2019-09-11] MEDS: SYNTHROID PO SCH (05:36)
[2019-09-11] MEDS: PROTONIX PO SCH (05:36)
[2019-09-11 05:56] VITALS: BP 126/76; TEMP 98.5
[2019-09-11] MEDS: NYSTATIN ORAL SUSP PO SCH (06:05)
[2019-09-11] MEDS ORDERED: KLONOPIN PO PRN (07:30)
--- NOTE | 2019-09-11 08:06 | PCM.PROG ---
Date Seen by Provider: 09/11/19 Time Seen by Provider: 08:02 Subjective: Patient seen on day 2 of inpatient stay for community-acquired pneumonia. She has been on Levaquin, and her improvement has been steady. Her WBC has normalized, and she has clinically improved. Patient would like to be discharged. Objective: Vitals: T=98.5 F, P=76, R=18, LT=689/76, SPO2=92 HEENT: [NCAT, PEERLA, EOMI] Neck: [NT, normal ROM] Lungs: [CTA B] CVS: [RRR] Abdomen: [soft, NT, NABS] Extremities: [NT, normal ROM] Neurological: [WNL] Skin: [WNL except healing incision on right 5th toe, which was clean, dry, and intact. There appear to be 3 simple interrupted [address] in place. Patient asked about having them removed prior to discharge, but decided to take care of them later.] Lab/Tests/Diagnostic Imaging: [CoVid - negative], vitals normalized, lab values normalized. Plan: Patient is ready for discharge, and would like to go home. Will discharge patient with PO Levaquin and instruction to follow-up with her PCP.
--- NOTE | 2019-09-11 08:07 | PCM.DC ---
Final Diagnosis: Pneumonia, Community-Acquired Reason for Hospitalization: Pneumonia Prognosis at Discharge: Good Condition at Discharge: Good Medications at Discharge: Ambulatory Orders Medication Instructions Recorded aspirin [Adult Aspirin Regimen] 81 mg PO BEDTIME 06/27/17 clonazepam [Klonopin] 1 mg PO TID PRN 07/15/18 divalproex [Depakote] 1,000 mg PO BEDTIME 07/15/18 sertraline [Zoloft] 200 mg PO DAILY 07/15/18 Cogentin 0.5 mg PO PRN PRN 11/14/18 quetiapine [Seroquel] 600 mg PO BEDTIME 11/14/18 blood sugar diagnostic [Glucose #100 strip 11/20/18 Test Strip] lancets #100 ea 11/20/18 levothyroxine 25 mcg tablet 25 mcg PO DAILY #90 tab-cap 05/25/19 pantoprazole 20 mg tablet,delayed 20 mg PO BID #60 tab 06/05/19 release dicyclomine 10 mg capsule 10 mg PO TID 30 Days #90 tab-cap 06/23/19 atorvastatin 20 mg tablet 20 mg PO BEDTIME 90 Days #90 06/25/19 tab-cap ropinirole 0.5 mg tablet 0.5 mg PO DAILY 90 Days #90 tab-cap 06/25/19 meclizine 25 mg chewable tablet 25 mg PO QDAY #30 tab 09/02/19 metformin 500 mg tablet 500 mg PO BID 30 Days #60 tab-cap 09/02/19 propranolol 40 mg PO DAILY 09/09/19 Education Provided to Patient and Family: Pneumonia, IP Follow-ups: PCP within 1 week. Discharge Disposition: Home Hospital Course: Patient was admitted through the ED for pneumonia. She was placed on IV Levaquin. Her condition steadily improved. She was checked for CoVid-19, and was negative. When her condition normalized, she was discharged in good condition with a prescription for PO Levaquin and instruction to follow- up with her PCP. Plan: Patient will be discharged home with a prescription for PO Levaquin and instruction to follow-up with her PCP within 1 week.
== END 2019-09-11 08:50 | disposition home or self-care (01) | DRG 951 ==
LOC: ED 15:51 → SCU 19:55
PROVIDERS: ADMIT Emergency Medicine Emergency Medical Services; ATTEND Family Medicine Addiction Medicine
DX: E78.5 Hyperlipidemia, unspecified; Z98.890 Other specified postprocedural states; J18.9 Pneumonia, unspecified organism; F31.9 Bipolar disorder, unspecified; R52 Pain, unspecified; E03.9 Hypothyroidism, unspecified; Z03.818 Encounter for observation for suspected exposure to other biological agents ruled out; Z79.4 Long term (current) use of insulin; R06.02 Shortness of breath; E11.9 Type 2 diabetes mellitus without complications; R53.83 Other fatigue; R09.02 Hypoxemia; R05 Cough; R50.9 Fever, unspecified